=== PATIENT | female | born 1935 | race Caucasian/White ===

== ENCOUNTER 2019-09-14 06:52 | Day surgery (SDC) | payer MEDICARE, OTHER ==
[~2019-09-14 06:52] MED LIST: Lactated Ringers 1,000 ML IV SCH; Lidocaine 1%/Sod Bicarbonate in NS 8.4% 1 ML Syringe IDERM PRN; Sodium Chloride 0.9% 10 ML Syringe FLUSH PRN
--- NOTE | 2019-09-14 07:33 | PCM.PREANE ---
Preanesthetic Assessment - Procedure Proposed Procedure: egd/colonoscopy - Anesthesia/Transfusion/Family Hx Anesthesia History: Prior Anesthesia Without Reaction Family History of Anesthesia Reaction: No Transfusion History: Prior Transfusion Without Reaction - Review of Systems General: No Symptoms Pulmonary: Cough (40 some years) Cardiovascular: Dyspnea on Exertion Gastrointestinal: Abdominal Pain Neurological: Numbness (at times in left hand) Other: Reports: Easy Bleeding, Easy Bruising - Physical Assessment NPO Status Date: 09/13/19 NPO Status Time: 00:00 Height: 1.57 m Weight: 58.513 kg ASA Class: 3 Mental Status: Alert & Oriented x3 Airway Class: Mallampati = 1 Dentition: Reports: Partial (bottom) Thyro-Mental Finger Breadths: 2 Mouth Opening Finger Breadths: 2 ROM/Head Extension: Limited/Partial Lungs: Clear to Auscultation, Normal Respiratory Effort Cardiovascular: Regular Rate, Regular Rhythm - Allergies Allergies/Adverse Reactions: Allergies Allergy/AdvReac Type Severity Reaction Status Date / Time metronidazole [From Flagyl] AdvReac Nausea and Verified 09/13/19 13:15 Vomiting - Blood Blood Available: No Product(s) Available: None - Anesthesia Plan Pre-Op Medication Ordered: None - Acknowledgements Anesthesia Type Planned: MAC Pt an Appropriate Candidate for the Planned Anesthesia: Yes Alternatives and Risks of Anesthesia Discussed w Pt/Guardian: Yes Pt/Guardian Understands and Agrees with Anesthesia Plan: Yes PreAnesthesia Questionnaire Other HEENT History: has "flipper" partial Cardiovascular History: Reports: Afib, Angina, Blood Clots/VTE/DVT, Pacemaker, Stents, Other (See Below) Other Cardiovascular History: Hx of bradycardia, cardiogenic shock, irregular heart beat, carotid bruit, cerebrovascular disease, mitral and tricuspid regurgitation, pericardial effusion,sick sinus syndrome, aortic valve sclerosis , angian, blood clot, STEMI, cardioverson Respiratory History: Reports: Bronchitis, Recurrent Other Respiratory History: Hx of choking, cough Gastrointestinal History: Reports: GERD, Hiatal Hernia, Other (See Below) Other Gastrointestinal History: Barretts esophagus, LUQ pain, dysphagia, diverticulosis, constipation Genitourinary History: Reports: Other (See Below) Other Genitourinary History: kidney disease Other OB/BYN History: hysterectomy Other Musculoskeletal History: L knee pain Neurological History: Reports: Other (See Below) Other Neuro History: lumbar stenosis with neurogenic claudication, dizziness, vertgo, lamiectomy discectomy Psychiatric History: Reports: None Endocrine/Metabolic History: Reports: None Hematologic History: Reports: None Immunologic History: Reports: None Oncologic (Cancer) History: Reports: None Dermatologic History: Reports: None - Past Surgical History HEENT Surgical History: Reports: Cataract Surgery Cardiovascular Surgical History: Reports: Carotid Endarterectomy, Pacer Other Cardiovascular Surgeries/Procedures: afib corrected with cardioversion 8- 9 years ago Respiratory Surgical History: Reports: None GI Surgical History: Reports: Appendectomy Female Surgical History: Reports: Hysterectomy Male Surgical History: Reports: None Endocrine Surgical History: Reports: None Neurological Surgical History: Reports: Laminectomy Oncologic Surgical History: Reports: None Dermatological Surgical History: Reports: None - SUBSTANCE USE Smoking Status *Q: Never Smoker Tobacco Use Within Last Twelve Months: No Second Hand Smoke Exposure: No Days Per Week of Alcohol Use: 0 Number of Drinks Per Day: 0 Total Drinks Per Week: 0 Recreational Drug Use History: No - HOME MEDS Home Medications: Home Meds Amiodarone HCl 200 mg PO DAILY 05/01/15 [History] Aspirin [Adult Low Dose Aspirin EC] 81 mg PO DAILY #30 tablet. 05/02/15 [Rx] Omeprazole 40 mg PO DAILY 07/25/15 [History] Magnesium Oxide [Magnesium] 400 mg PO DAILY 07/30/16 [History] atorvaSTATin [Lipitor] 40 mg PO BEDTIME 07/30/16 [History] Acetaminophen [Tylenol] 650 mg PO Q4H PRN 09/13/19 [History] Fluticasone Propionate [Flonase] 1 dose NASBOTH DAILY 09/13/19 [History] Meclizine [Antivert] 25 mg PO DAILY 09/13/19 [History] Ranitidine HCl [Ranitidine] 300 mg PO DAILY 09/13/19 [History] Warfarin Sodium 1 mg PO SUTUTHSA 09/13/19 [History] Warfarin Sodium 1.5 mg PO MOWEFR 09/13/19 [History] - CURRENT (IN HOUSE) MEDS Current Meds: Current Medications Lactated Ringer's (Ringers, Lactated) 1,000 mls @ 125 mls/hr IV ASDIRECTED VALENCIA Stop: 09/14/19 23:00 Lidocaine/Sodium Bicarbonate (Buffered Lidocaine 1% In Ns 8.4%) 0.25 ml IDERM ONETIME PRN PRN Reason: Prior to IV Start Stop: 09/14/19 18:00 Sodium Chloride (Saline Flush) 10 ml FLUSH ASDIRECTED PRN PRN Reason: Keep Vein Open Stop: 09/14/19 18:00
[2019-09-14] MEDS ORDERED: fentaNYL 100 MCG/2 ML SDV ONE (07:43)
[2019-09-14] MEDS ORDERED: Propofol 200 MG/20 ML SDV ONE (07:43)
--- NOTE | 2019-09-14 08:46 | PCM.OPNOTE ---
- General Post-Op/Procedure Note Date of Surgery/Procedure: 09/14/19 Operative Procedure(s): EGD with bx/colonosocopy Pre Op Diagnosis: change in bowel habits hx of barretts esophagus and abnormal CT of esophagus Post-Op Diagnosis: Same Anesthesia Technique: MAC Primary Surgeon: Elmer Muller EBL in mLs: 0 Complications: None Condition: Good
--- NOTE | 2019-09-14 08:52 | PCM48HPAN ---
Post Anesthesia Note - EVALUATION WITHIN 48HRS OF ANESTHETIC Vital Signs in Normal Range: Yes Patient Participated in Evaluation: Yes Respiratory Function Stable: Yes Airway Patent: Yes Cardiovascular Function Stable: Yes Hydration Status Stable: Yes Pain Control Satisfactory: Yes Nausea and Vomiting Control Satisfactory: Yes Mental Status Recovered: Yes Vital Signs: Last Vital Signs Temp 36.4 C 09/14/19 07:05 Pulse 65 09/14/19 07:05 Resp 16 09/14/19 07:05 BP 157/66 H 09/14/19 07:05 Pulse Ox 99 09/14/19 07:05 - COMMENTS/OBSERVATIONS Free Text/Narrative:: no anesthesia complications noted
[2019-09-14 09:11] VITALS: BP 144/67; PULSE 59
--- NOTE | 2019-09-15 10:42 | OR ---
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 OPERATION PERFORMED: Esophagogastroduodenoscopy with biopsy of the GE junction. FINDINGS: Second portion of the duodenum, duodenal bulb, and pyloric channel were unremarkable. Antrum, body, cardia of stomach, and fundus were negative. There was the presence of a hiatal hernia. GE junction was located at 40 to 38 cm. 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 Four-quadrant biopsies were done at the GE junction. Rest of the esophagus was unremarkable. DESCRIPTION OF PROCEDURE: The patient was taken to the endoscopy room, placed in a supine position, connected to monitoring equipment, given IV sedation, and placed in left lateral position. Bite block was inserted. Video Olympus gastroscope placed in the posterior oropharynx under direct vision, threaded past the cricopharyngeus, down the esophagus and into the stomach. The stomach was insufflated and the scope passed through the pylorus and the second portion of the duodenum, which was slowly withdrawn showing normal 2nd portion of the duodenum, duodenal bulb, and pyloric channel. Antrum, body, and cardia of the stomach showed some flattened mucosa. J-maneuver showed a hiatal hernia. No acute disease was seen in the stomach that would suggest chronic gastritis. Scope withdrawn from the GE junction as described above. The Z-line was just mildly irregular with some telangiectasia and 4-quadrant biopsies were taken. Rest of the esophagus was unremarkable. The patient tolerated the procedure and IV sedation continued for colonoscopy. ANESTHESIA: ESTIMATED BLOOD LOSS: MMODAL /[id number]
--- NOTE | 2019-09-15 10:43 | OR ---
DATE OF OPERATION: 09/14/2019 SURGEON: Elmer Muller MD PREOPERATIVE DIAGNOSIS: Change in bowel habits. POSTOPERATIVE DIAGNOSIS: Change in bowel habits. OPERATION PERFORMED: Colonoscopy to 20 cm. FINDINGS: Occasional diverticulum in that area. No particular pathology seen. Unable to advance the scope beyond 20 cm because of technical reasons. ANESTHESIA: Procedure done under IV sedation. DESCRIPTION OF PROCEDURE: The patient taken to the endoscopy room having been connected to monitoring equipment, IV sedation, oximeter, and vehicle monitor technician for upper GI endoscopy and given sedation. Sedation was continued for colonoscopy. She was placed in the left lateral position. Perianal area showed some mild hemorrhoids. Rectal exam showed less sphincter tone. Video Olympus colonoscope was then introduced into the rectum and threaded up to 20 cm where an acute bend did not allow the scope to transverse into the descending colon. Scope prep was excellent, and the scope slowly withdrawn showing the sigmoid colon and rectum in no particular pathology. The patient tolerated the procedure, sent to recovery room in a stable condition. ESTIMATED BLOOD LOSS: MMODAL /[id number]
== END 2019-09-14 09:35 | disposition home or self-care (01) ==
LOC: JD.SDS 06:52
PROVIDERS: ATTEND Surgery
DX: R19.4 Change in bowel habit (principal); K22.70 Barrett's esophagus without dysplasia; K44.9 Diaphragmatic hernia without obstruction or gangrene; K21.0 Gastro-esophageal reflux disease with esophagitis; K57.30 Diverticulosis of large intestine without perforation or abscess without bleeding; Z88.1 Allergy status to other antibiotic agents; Z90.49 Acquired absence of other specified parts of digestive tract; Z79.899 Other long term (current) drug therapy
CPT/HCPCS: 00813; 36415; 85610; J2704; J3010; J7120

== ENCOUNTER 2020-04-24 14:55 | Emergency (ER) | payer MEDICARE, OTHER ==
[2020-04-24 15:24] VITALS: BP 173/86; PULSE 66
--- NOTE | 2020-04-24 16:07 | EDM.PDOC ---
ED HPI GENERAL MEDICAL PROBLEM - General Chief Complaint: Head Injury Stated Complaint: FALL Time Seen by Provider: 04/24/20 15:30 Source of Information: Reports: Patient, Family (daughter) History Limitations: Reports: No Limitations - History of Present Illness INITIAL COMMENTS - FREE TEXT/NARRATIVE: 84-year-old female presents to the ED with her daughter. History suggest that she was in her kitchen with her granddaughter and suddenly fell backwards striking her head on the floor. By history it sounds like this happens frequently by looking too far forward or upwards I likely vertebrobasilar insufficiency. She by history she has chronic sinusitis with postnasal drip for 50 years. This causes her throat to be sore in the mornings as well as being nauseated in the a.m. 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 She really does not seem to have any true vertigo symptoms however. She is chronically anticoagulated with Coumadin because of atrial fibrillation. He was tested in the clinic yesterday and her INR was supratherapeutic at 3.2. Apparently her Coumadin was reduced by a quarter of a tablet daily. At present she has a mild headache but no nausea or vomiting. Denies any visual acuity changes. She denies pain in her upper mid back ribs or hips or knees or elbows or wrists. Onset: Today Onset Date: 04/24/20 Onset Time: 13:30 Duration: Minutes: Location: Reports: Head, Neck Quality: Reports: Ache, Other (Headache) Severity: Moderate (lump on the back of her head.) Improves with: Reports: None Worsens with: Reports: None Context: Reports: Trauma (Fell in her kitchen backwards directly onto the floor without any warning. By history has some vertebral basilar insufficiency). Denies: Activity, Exercise, Lifting, Sick Contact Associated Symptoms: Reports: Other (Chronic postnasal drip). Denies: Confusion , Chest Pain, Cough, cough w sputum, Diaphoresis, Fever/Chills, Headaches, Loss of Appetite, Malaise, Nausea/Vomiting Treatments [employer] S[employer]: Reports: Other (see below) (None.) - Related Data Allergies Allergy/AdvReac Type Severity Reaction Status Date / Time metronidazole [From Flagyl] AdvReac Nausea and Verified 04/24/20 15:24 Vomiting Home Meds: Home Meds Amiodarone HCl 200 mg PO DAILY 05/01/15 [History] Aspirin [Adult Low Dose Aspirin EC] 81 mg PO DAILY #30 tablet.dr 05/02/15 [Rx] Omeprazole 40 mg PO DAILY 07/25/15 [History] Magnesium Oxide [Magnesium] 400 mg PO DAILY 07/30/16 [History] atorvaSTATin [Lipitor] 40 mg PO BEDTIME 07/30/16 [History] Acetaminophen [Tylenol] 650 mg PO Q4H PRN 09/13/19 [History] Warfarin Sodium 1.5 mg PO DAILY 09/13/19 [History] Montelukast [Singulair] 10 mg PO DAILY #30 tab 04/24/20 [Rx] amLODIPine [Norvasc] 5 mg PO DAILY #30 tab 04/24/20 [Rx] Past Medical History HEENT History: Reports: Allergic Rhinitis (Chronic postnasal drip for 50 years.) Other HEENT History: has "flipper" partial Cardiovascular History: Reports: Afib (Controlled with amiodarone.), Angina, Blood Clots/VTE/DVT, Pacemaker, Stents, Other (See Below) Other Cardiovascular History: Hx of bradycardia, cardiogenic shock, irregular heart beat, carotid bruit, cerebrovascular disease, mitral and tricuspid regurgitation, pericardial effusion,sick sinus syndrome, aortic valve sclerosis , angian, blood clot, STEMI, cardioverson Respiratory History: Reports: Bronchitis, Recurrent Other Respiratory History: Hx of choking, cough Gastrointestinal History: Reports: GERD, Hiatal Hernia, Other (See Below) Other Gastrointestinal History: Barretts esophagus, LUQ pain, dysphagia, diverticulosis, constipation Genitourinary History: Reports: Other (See Below) Other Genitourinary History: kidney disease CELLULAR BIOLOGIST History: Reports: Other CELLULAR BIOLOGIST History: hysterectomy Other Musculoskeletal History: L knee pain Neurological History: Reports: Other (See Below) Other Neuro History: lumbar stenosis with neurogenic claudication, dizziness, vertgo, lamiectomy discectomy Psychiatric History: Reports: None Endocrine/Metabolic History: Reports: None Hematologic History: Reports: None Immunologic History: Reports: None Oncologic (Cancer) History: Reports: None Dermatologic History: Reports: None - Infectious Disease History Infectious Disease History: Reports: None - Past Surgical History HEENT Surgical History: Reports: Cataract Surgery Cardiovascular Surgical History: Reports: Carotid Endarterectomy, Pacer Other Cardiovascular Surgeries/Procedures: afib corrected with cardioversion 8- 9 years ago Respiratory Surgical History: Reports: None GI Surgical History: Reports: Appendectomy Female Surgical History: Reports: Hysterectomy Endocrine Surgical History: Reports: None Neurological Surgical History: Reports: Laminectomy Oncologic Surgical History: Reports: None Dermatological Surgical History: Reports: None Social & Family History - Tobacco Use Smoking Status *Q: Never Smoker - Caffeine Use Caffeine Use: Reports: Coffee - Recreational Drug Use Recreational Drug Use: No - Living Situation & Occupation Living situation: Reports: Occupation: Retired ED ROS GENERAL - Review of Systems Review Of Systems: See Below Constitutional: Reports: Fatigue. Denies: Fever, Chills HEENT: Reports: Glasses Respiratory: Reports: Shortness of Breath. Denies: Wheezing, Pleuritic Chest Pain (Patient on dyspnea on exertion.), Cough, Sputum Cardiovascular: Reports: Blood Pressure Problem, Claudication (Has known systolic hypertension), Dyspnea on Exertion, Lightheadedness, Palpitations (On occasions chronic atrial fibrillation). Denies: Chest Pain, Edema, Orthopnea Endocrine: Reports: Fatigue GI/Abdominal: Reports: Constipation. Denies: Hematemesis, Hematochezia : Reports: Frequency, Incontinence (Urge and stress components.) Musculoskeletal: Reports: Neck Pain (Neck pain worse since she fell today.), Shoulder Pain (Both shoulders), Joint Pain (Knees hips low back at times) Skin: Reports: Bruising (Bruises easily due to being on Coumadin.) Neurological: Reports: Dizziness (Gets lightheaded and falls forward or backwards quite often without any vertigo symptoms.) Psychiatric: Reports: No Symptoms Hematologic/Lymphatic: Reports: No Symptoms Immunologic: Reports: No Symptoms ED EXAM, HEAD INJURY - Physical Exam Exam: See Below Exam Limited By: No Limitations General Appearance: Alert, WD/WN, No Apparent Distress, Other (Temperature is 36.7 with heart rate of 66 and sinus respiratory 16 with O2 sats of 97% on room air BP 173/86 a systolic hypertension) Head: Scalp Hematoma (Scalp hematoma midline of the occipital scalp. Tenderness in the same area.) Nexus Criteria: Posterior, Midline Cervical Tenderness (From C4-C7 bilaterally. Appears to be quite mild.) Eyes: Bilateral Eye: Normal Inspection, Periorbital Changes Nose: Nasal Swelling (Has marked swelling of both superior and middle turbinates. This is most pronounced on the right side where they are kissing in the midline. She has bilateral nasal polyps as well.) Throat/Mouth: Normal Inspection, Normal Lips, Normal Oropharynx, Other (No injury to her tongue). No: Normal Teeth Neck: Paraspinous Muscle Tender, Stiff Neck, Tender Lateral (Mild bilaterally from C4-C7.). No: Spinous Processes Tender (From C4-C7 bilaterally.) Respiratory: No Respiratory Distress, Lungs Clear, Normal Breath Sounds, No Accessory Muscle Use Cardiovascular: Normal Peripheral Pulses, No Gallop, No Murmur, No Rub, Systolic Murmur (Grade 1 out of 6 pansystolic ejection murmur best heard at the left lower sternal border.), Irregularly Irregular (She appears to be in atrial fibrillation with a controlled rate in the 60s.) GI/Abdominal Exam: Normal Bowel Sounds, Soft, Non-Tender, No Organomegaly, No Mass, Pelvis Stable, Other (She indicates that recent investigations reveal a mass in her left hemicolon.) Back Exam: Other (No abrasions or contusions to her spinous processes which are all very prominent). No: Paraspinal Tenderness, Vertebral Tenderness Extremities: Normal Inspection, Normal Range of Motion, Non-Tender, No Pedal Edema, Normal Capillary Refill, Other (The elbows wrists or hands knees or hips. ) Neurologic: No Motor/Sensory Deficits, Alert, Normal Mood/Affect, Oriented x 3 Skin: Normal Color, Warm/Dry - [place] Coma Score Best Eye Response (Ginger): (4) Open Spontaneously Best Verbal Response (Ginger): (5) Oriented Best Motor Response (Ginger): (6) Obeys Commands Ginger Total: 15 Course - Vital Signs Last Recorded V/S: Last Vital Signs Temp 36.7 C 04/24/20 15:21 Pulse 66 04/24/20 15:21 Resp 16 04/24/20 15:21 BP 173/86 H 04/24/20 15:21 Pulse Ox 97 04/24/20 15:21 - Radiology Interpretation Free Text/Narrative:: 84-year-old female presents to the ED for evaluation after a fall at home. By history she fell directly backwards without any warning onto the back of her head striking the kitchen floor. There was no loss of consciousness. She is complaining mildly of a cervical neck pain and a hematoma has formed on the mid occipital scalp. She is on Coumadin with INR done yesterday which is supratherapeutic at 3.2. Her Coumadin dose was reduced by Coumadin nurse today by phone. Been having her INR done weekly because of difficulty stabilizing her dose. No other injuries are identified The history suggest she has a chronic postnasal drip and she does have severe nasal turbinate enlargement bilaterally with nasal polyps bilaterally causing postnasal drip. Thus the possibility of using Nasacort AQ once daily at bedtime which she will find difficulty is because she cannot assume the Pamela position. We will also give her a trial of montelukast once daily for the next month to see if it makes any difference. Plan will be to have CT of head and cervical spine carried out. - Re-Assessments/Exams Free Text/Narrative Re-Assessment/Exam: 04/24/20 16:51 CT of the brain and skull reveals no skull fractures. There is no intracranial bleeding or mass-effect. There is diffuse small vessel ischemic changes in both basal ganglia is. There is advanced degenerative changes with dilated lateral ventricles and some encephalomalacia at the anterior horns. CT of the cervical spine reveals advanced degenerative arthritic changes particularly in the facet joints on the right side of the neck. No fractures or malalignment is appreciated. Therefore she will be discharged to home. It is impossible to tell if she has any concussion which her activity is of very low level at any rate. Her pressures remained elevated systolically. It is high as 193 and is low was 173. It likes to stay around 182. This diastolic numbers around 70s. I am therefore going to place her on amlodipine 5 mg once daily in an effort to lower her systolic hypertension. We spoke at length about her chronic nasal congestion and postnasal drip. We will place her on Nasacort nasal spray and she is to try and assume a position with head tilted back over a pillow where she can get the medication to stay in the upper chambers of her nares to do any good. We will also try her on a trial of montelukast 10 mg once daily for a month to see if this alleviates chronic sinus congestion. Is to follow-up with Dr. Prieto in 3 to 4 weeks time for blood pressure review only she does have an appointment to see ear nose and throat surgeon in [place] sometime in the next month Departure - Departure Time of Disposition: 16:52 Disposition: Home, Self-Care 01 Condition: Fair Clinical Impression: Chronic allergic rhinitis, Vertebrobasilar insufficiency Fall as cause of accidental injury at home as place of occurrence Qualifiers: Encounter type: initial encounter Qualified Code(s): W19.XXXA - Unspecified fall, initial encounter Closed head injury without concussion Qualifiers: Encounter type: initial encounter Qualified Code(s): S09.90XA - Unspecified injury of head, initial encounter Sprain of cervical neck Qualifiers: Encounter type: initial encounter Qualified Code(s): S13.9XXA - Sprain of joints and ligaments of unspecified parts of neck, initial encounter - Discharge Information *PRESCRIPTION DRUG MONITORING PROGRAM REVIEWED*: Not Applicable *COPY OF PRESCRIPTION DRUG MONITORING REPORT IN PATIENT NEETU: Not Applicable Prescriptions: amLODIPine [Norvasc] 5 mg PO DAILY #30 tab Montelukast [Singulair] 10 mg PO DAILY #30 tab Instructions: Head Injury, Adult, [id number], Cervical Sprain, [id number] Referrals: Henri Prieto MD [Primary Care Provider] - Forms: ED Department Discharge Additional Instructions: Evaluation in the emergency room today in regards to a fall experienced in your kitchen at home this afternoon. He simply fell straight backwards onto the floor striking the back of your head on the floor with no reported loss of consciousness. There is him no amnesia for the event and no clinical evidence of a concussion. Due to being on Coumadin CT of the head was performed and it reveals no intracranial bleeding or skull fracture there is no mass-effect. There are age-appropriate degenerative changes. CT of the cervical spine reveals advanced degenerative arthritic change throughout all levels of the spine particular on the right side. No fractures were identified. Expect your neck to become more stiff and sore over the next 24 to 48 hours. May take Tylenol sparingly for headache if needed. I suspect you have vertebrobasilar insufficiency which means the arteries that supply the back of your brain which is your balance mechanism are easily kinked when you look upwards or downwards in extreme range of motion. This will cause you to fall forwards or backwards quite easily. Think can be done about this as it is age-related. Secondly I do believe you have chronic severe allergic rhinitis due to allergies. I would suggest a trial of Nasacort nasal spray 2 squirts each side of the naris twice daily for the next 5 days and then once daily at bedtime only to try and reduce the swelling of the turbinates and your nose which in turn you should reduce the amount of fluid they produce in response to allergy. This would open up your nasal passages. Do has some ethmoid sinus congestion on the CT but no significant sinus infection in the frontals or the maxillary sinuses. You could also try a trial of montelukast or Singulair 1 tablet once daily for period of a month to see if it does relieve any of your nasal symptoms. Write a prescription in this regard. In regards to your blood pressure you have something called systolic hypertension which means only the top number is elevated persistently. It was as high as 193 but it likes to hang out in the 180s. They are therefore think that it does deserve treatment and I would suggest amlodipine 5 mg once daily to lower your top number of your blood pressure. Gain all of these medications been written for 1 month you need to follow-up with your primary care provider which I believe is Dr. Prieto in the next [address] nasal spray is [id number]. 2 squirts to each side of your nose a minute apart twice daily for the first week and then once daily at bedtime . In a similar position where the medicine will stay in the upper part of the naris and soak into the tissues were will do some good. Usually lying down with the head tilted backwards will do the trick Sepsis Event Note (ED) - Evaluation Sepsis Screening Result: No Definite Risk - Focused Exam Vital Signs: Vital Signs Temp Pulse Resp BP Pulse Ox 04/24/20 15:21 36.7 C 66 16 173/86 H 97
--- NOTE | 2020-04-24 16:53 | CT ---
Head CT Technique: Multiple axial sections through the brain were obtained. Intravenous contrast was not utilized. Comparison: No prior intracranial imaging is available. Findings: Ventricles along with basal cisterns and sulci over the next these are mildly prominent. Diminished density is noted within the periventricular white matter compatible with small vessel ischemic demyelination change. No other abnormal parenchymal densities are seen. No evidence of intracranial hemorrhage. No midline shift or mass-effect is seen. Bone window settings were reviewed which shows no acute calvarial finding. Visualized mastoid sinuses show nothing acute. Mild areas mucosal thickening is seen within the ethmoid sinuses. No air-fluid levels are seen within the paranasal sinuses. Impression: 1. Mild senescent change. 2. Sinus findings which are believed to be nonacute. 3. No acute intracranial abnormality is appreciated. Diagnostic code #2 This report was dictated in MDT
--- NOTE | 2020-04-24 16:59 | CT ---
CT cervical spine Technique: Multiple axial images were obtained from above C1 inferiorly to the bottom of T3. Reconstructed coronal and sagittal images were obtained. Comparison: No prior cervical spine imaging. Findings: Diffuse posterior disc space narrowing is seen. Fairly severe diffuse disc space narrowing is noted at C6-7. Posterior osteophytes are C6-7 as well as anterior osteophytes. Mild spondylolisthesis is noted at C4-5 due to degenerative apophyseal change. Mild spondylolisthesis is noted at 4 T1-2 due to degenerative apophyseal change. Minimal spondylolisthesis is also noted at C5-6 due to degenerative apophyseal change. Degenerative apophyseal change is also noted at other cervical and upper thoracic levels. Mild right-sided neural foraminal stenosis is noted at C3-4. Other neural foramina are fairly well patent. No fracture is appreciated. Diffuse degenerative spurring is noted within the uncovertebral joints. Impression: 1. Diffuse degenerative change as described above. 2. Nothing acute is appreciated on CT study of the cervical spine. Diagnostic code #2 This report was dictated in MDT
== END 2020-04-24 17:35 | disposition home or self-care (01) ==
LOC: JD.ED 14:55
DX: S09.90XA Unspecified injury of head, initial encounter (principal); S13.4XXA Sprain of ligaments of cervical spine, initial encounter; G45.0 Vertebro-basilar artery syndrome; J30.9 Allergic rhinitis, unspecified; K21.9 Gastro-esophageal reflux disease without esophagitis; I48.91 Unspecified atrial fibrillation; Z88.8 Allergy status to other drugs, medicaments and biological substances; Z79.82 Long term (current) use of aspirin; Z79.899 Other long term (current) drug therapy; Z90.710 Acquired absence of both cervix and uterus; Z90.49 Acquired absence of other specified parts of digestive tract; W19.XXXA Unspecified fall, initial encounter; Y92.009 Unspecified place in unspecified non-institutional (private) residence as the place of occurrence of the external cause
CPT/HCPCS: 70450; 70450-26; 72125; 72125-26; 99283-25; 99284

== ENCOUNTER 2020-05-31 11:06 | Emergency (ER) | payer MEDICARE, OTHER ==
[2020-05-31 11:22] VITALS: BP 155/75; PULSE 63
--- NOTE | 2020-05-31 11:32 | EDM.PDOC ---
ED HPI GENERAL MEDICAL PROBLEM - General Chief Complaint: General Stated Complaint: DIZZY AND WEAK Time Seen by Provider: 05/31/20 11:31 Source of Information: Reports: Patient History Limitations: Reports: No Limitations - History of Present Illness INITIAL COMMENTS - FREE TEXT/NARRATIVE: 84-year-old female attends the ED with I believe a [id number]. She reports that she awoke with very bad vertigo episode yesterday morning and was not too bad overnight but again worse this morning upon getting up. She has not fallen. She is hanging onto the furniture to walk. Vertigo goes away when she holds still. She has had many of these episodes in the past. She appreciates she is also becoming more deaf and losing her hearing as time goes on. She states she makes the symptoms go away by closing her eyes and holding still. No associated nausea or vomiting. Patient has a history of chronic atrial fibrillation but rate appears to be controlled with a pacemaker at 60/min. She states she has had 2 coronary stents placed in the pacemaker in the same year. She also had a left carotid endarterectomy in the past. She does not appreciate any weakness. Does have a cough that is not bringing up any sputum. Feels that she has extra saliva which I believe is likely due to postnasal drip. Ports just getting off of some pills for her sinus disease. she does not wear hearing aids. Onset: Sudden Onset Date: 05/30/20 (Woke with vertigo symptoms yesterday morning.) Duration: Hour(s):, Waxing/Waning Location: Reports: Other (Acute onset of vertigo symptoms controlled by holding still and closing her eyes.) Quality: Reports: Other (Recurrent) Severity: Moderate (benign positional vertigo.) Improves with: Reports: Rest (Closing her eyes and holding still.) Worsens with: Reports: Movement (Opened up her head neck or getting in and out of bed. Also looking upwards) Context: Reports: Other (Continuous occurrence yesterday morning.). Denies: Activity ( makes the vertigo worse.), Exercise, Lifting, Sick Contact, Trauma Associated Symptoms: Reports: Cough, Malaise, Shortness of Breath, Weakness. 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 (see below) (Just finished medications for sinuses.) - Related Data Allergies Allergy/AdvReac Type Severity Reaction Status Date / Time metronidazole [From Flagyl] AdvReac Nausea and Verified 05/31/20 11:21 Vomiting Home Meds: Home Meds Amiodarone HCl 200 mg PO DAILY 05/01/15 [History] Aspirin [Adult Low Dose Aspirin EC] 81 mg PO DAILY #30 tablet.dr 05/02/15 [Rx] Omeprazole 40 mg PO DAILY 07/25/15 [History] Magnesium Oxide [Magnesium] 400 mg PO DAILY 07/30/16 [History] atorvaSTATin [Lipitor] 40 mg PO BEDTIME 07/30/16 [History] Acetaminophen [Tylenol] 650 mg PO Q4H PRN 09/13/19 [History] Warfarin Sodium 1.5 mg PO DAILY 09/13/19 [History] Montelukast [Singulair] 10 mg PO DAILY #30 tab 04/24/20 [Rx] Meclizine [Antivert] 12.5 mg PO TID #15 tab 05/31/20 [Rx] Past Medical History HEENT History: Reports: Allergic Rhinitis Other HEENT History: has "flipper" partial Cardiovascular History: Reports: Afib, Angina, Blood Clots/VTE/DVT, Pacemaker, Stents, Other (See Below) Other Cardiovascular History: Hx of bradycardia, cardiogenic shock, irregular heart beat, carotid bruit, cerebrovascular disease, mitral and tricuspid regurgitation, pericardial effusion,sick sinus syndrome, aortic valve sclerosis, angian, blood clot, STEMI, cardioverson Respiratory History: Reports: Bronchitis, Recurrent Other Respiratory History: Hx of choking, cough Gastrointestinal History: Reports: GERD, Hiatal Hernia, Other (See Below) Other Gastrointestinal History: Barretts esophagus, LUQ pain, dysphagia, diverticulosis, constipation Genitourinary History: Reports: Other (See Below) Other Genitourinary History: kidney disease LEMON PICKER History: Reports: Other LEMON PICKER History: hysterectomy Other Musculoskeletal History: L knee pain Neurological History: Reports: Other (See Below) Other Neuro History: lumbar stenosis with neurogenic claudication, dizziness, vertgo, lamiectomy discectomy Psychiatric History: Reports: None Endocrine/Metabolic History: Reports: None Hematologic History: Reports: None Immunologic History: Reports: None Oncologic (Cancer) History: Reports: None Dermatologic History: Reports: None - Infectious Disease History Infectious Disease History: Reports: None - Past Surgical History HEENT Surgical History: Reports: Cataract Surgery Cardiovascular Surgical History: Reports: Carotid Endarterectomy, Pacer (Left upper anterior chest left side) Other Cardiovascular Surgeries/Procedures: afib corrected with cardioversion 8-9 years ago Respiratory Surgical History: Reports: None GI Surgical History: Reports: Appendectomy Female Surgical History: Reports: Hysterectomy (With 1 ovary removed and she can remember which one probably the right.) Endocrine Surgical History: Reports: None Neurological Surgical History: Reports: Laminectomy Oncologic Surgical History: Reports: None Dermatological Surgical History: Reports: None Social & Family History - Tobacco Use Smoking Status *Q: Never Smoker - Caffeine Use Caffeine Use: Reports: Coffee, Tea - Recreational Drug Use Recreational Drug Use: No - Living Situation & Occupation Living situation: Reports: Occupation: Retired ED ROS GENERAL - Review of Systems Review Of Systems: See Below Constitutional: Reports: Weakness, Fatigue, Decreased Appetite. Denies: Fever, Chills, Malaise, Weight Loss HEENT: Reports: Glasses, Hearing Loss (Lateral hearing loss which she states is getting worse. No increased humming ringing or tinnitus appreciated.), Rhinitis, Other (Feels like she has extra saliva in her throat particularly at night.) Respiratory: Reports: Shortness of Breath, Cough. Denies: Wheezing, Pleuritic Chest Pain, Sputum, Hemoptysis (Cough for the last couple of days without any sputum production.) Cardiovascular: Reports: Blood Pressure Problem, Dyspnea on Exertion (Has some edema of her left lower extremity.), Edema, Palpitations (Occasionally aware of palpitations due to atrial fibrillation. Of note she is primarily paced rhythm at 60/min on the monitor.). Denies: Chest Pain, Claudication, Orthopnea Endocrine: Reports: Fatigue GI/Abdominal: Reports: Constipation (She does not take medicine for this but stools are hard and somewhat painful to pass at times.), Decreased Appetite. Denies: Difficulty Swallowing, Distension, Hematemesis, Hematochezia, Melena, Mucous in Stool : Reports: Frequency, Incontinence (Third and stress components.) Musculoskeletal: Reports: Neck Pain, Shoulder Pain, Back Pain, Joint Pain (He is in hips at times. No artificial joints.) Skin: Reports: Bruising (This is easily as she is on Coumadin.) Neurological: Reports: Dizziness, Difficulty Walking, Gait Disturbance (Ataxic gait due to vertigo.). Denies: Confusion, Headache (Dizziness which is interpreted as vertigo.), Numbness, Pre-Existing Deficit (Vertigo), Syncope, Tingling, Tremors, Trouble Speaking, Change in Speech Psychiatric: Reports: Anxiety Hematologic/Lymphatic: Reports: No Symptoms Immunologic: Reports: No Symptoms ED EXAM, GENERAL - Physical Exam Exam: See Below Exam Limited By: No Limitations General Appearance: Alert, WD/WN, Anxious, Moderate Distress, Other (Temperature is 36.1. Heart rate is 63 and sinus respiratory is 18 BP 1 5575 pulse ox is 98% on room air.) Eye Exam: Bilateral Eye: Nystagmus (No sustained nystagmus on either lateral gaze.), PERRL Ears: Normal TMs Nose: Nasal Swelling (Patient does have some mild swelling of both the superior medial turbinates bilaterally slightly worse on the right side as compared to th e left. No obvious drainage apparent in either nostril. No recent), Other Throat/Mouth: Normal Inspection ( evidence of nosebleeds.), Normal Lips, Normal Teeth, Normal Oropharynx, Other (Does have a lower plate.) Head: Atraumatic, Normocephalic Neck: Normal Inspection, Supple, Non-Tender, Full Range of Motion. No: Lympha denopathy (L), Lymphadenopathy (R) Respiratory/Chest: No Respiratory Distress, Lungs Clear, No Accessory Muscle Use, Decreased Breath Sounds (Sounds are mildly diminished to the lung bases by about 20%.). No: Rales, Rhonchi Cardiovascular: Regular Rate, Rhythm, No Gallop, No Murmur, No Rub, Other (Patient has a palpable beat in the left lateral chest. Pacemaker present left upper anterior chest in good position.). No: Normal Peripheral Pulses, No Edema Peripheral Pulses: 1+: Posterior Tibial (L) (Also difficult to feel in both feet due to edema in the left side and some evidence of peripheral vascular disease.), Posterior Tibial (R), Dorsalis Pedis (L), Dorsalis Pedis (R), 2+: Carotid (L), Carotid (R) GI/Abdominal: Normal Bowel Sounds, Soft, Non-Tender, No Organomegaly, No Abnormal Bruit, No Mass, Pelvis Stable, Other (Evidence of previous surgery i.e. appendectomy and hysterectomy.) Back Exam: Other (Mild kyphosis thoracic spine.) Extremities: Pedal Edema (2+ pitting edema left lower extremity Yan edema on the right side.) Neurological: Alert, Oriented, CN II-XII Intact, Normal Cognition Psychiatric: Other. No: Normal Mood (Mildly cantankerous.) Skin Exam: Warm, Dry, Intact, Normal Color, No Rash Course - Vital Signs Last Recorded V/S: Last Vital Signs Temp 36.1 C 05/31/20 11:18 Pulse 63 05/31/20 11:18 Resp 18 05/31/20 11:18 BP 155/75 H 05/31/20 11:18 Pulse Ox 98 05/31/20 11:18 - Orders/Labs/Meds Orders: Active Orders 24 hr Category Date Time Status Dextrose 5%-0.9% NaCl [Dextrose 5%-Normal Saline] 1,000 Med 05/31/20 11:45 Active ml IV ASDIRECTED Medication Orders Dextrose/Sodium Chloride (Dextrose 5%-Normal Saline) 1,000 mls @ 125 mls/hr IV ASDIRECTED VALENCIA Last Admin: 05/31/20 12:07 Dose: 125 mls/hr Documented by: ALE Labs: Laboratory Tests 05/31/20 05/31/20 05/31/20 Range/Units 12:16 12:16 12:16 WBC 7.41 (3.98-10.04) K/mm3 RBC 4.56 (3.98-5.22) M/mm3 Hgb 13.4 (11.2-15.7) gm/dl Hct 41.2 (34.1-44.9) % MCV 90.4 D (79.4-94.8) fl MCH 29.4 (25.6-32.2) pg MCHC 32.5 (32.2-35.5) g/dl RDW Std Deviation 44.9 (36.4-46.3) fL Plt Count 192 (182-369) K/mm3 MPV 10.3 (9.4-12.3) fl Neut % (Auto) 75.7 H (34.0-71.1) % Lymph % (Auto) 15.0 L (19.3-51.7) % [place] % (Auto) 8.2 (4.7-12.5) % Eos % (Auto) 0.7 (0.7-5.8) Baso % (Auto) 0.4 (0.1-1.2) % Neut # (Auto) 5.61 (1.56-6.13) K/mm3 Lymph # (Auto) 1.11 L (1.18-3.74) K/mm3 [place] # (Auto) 0.61 H (0.24-0.36) K/mm3 Eos # (Auto) 0.05 (0.04-0.36) K/mm3 Baso # (Auto) 0.03 (0.01-0.08) K/mm3 PT 26.5 H D (9.7-12.0) SECONDS INR 2.56 Sodium 137 (136-145) mEq/L Potassium 5.2 H (3.5-5.1) mEq/L Chloride 100 (98-107) mEq/L Carbon Dioxide 28 (21-32) mEq/L Anion Gap 14.2 (5-15) BUN 21 H (7-18) mg/dL Creatinine 1.4 H (0.55-1.02) mg/dL Est Cr Clr Drug Dosing 25.37 mL/min Estimated GFR (MDRD) 36 (>60) mL/min BUN/Creatinine Ratio 15.0 (14-18) Glucose 90 (83-115) mg/dL Calcium 9.1 (8.5-10.1) mg/dL Magnesium 2.2 (1.8-2.4) mg/dl Total Bilirubin 1.2 H (0.2-1.0) mg/dL AST 30 (15-37) U/L ALT 36 (14-59) U/L Alkaline Phosphatase 76 (46-116) U/L Troponin I < 0.017 (0.00-0.056) ng/mL C-Reactive Protein <0.2 (<1.0) mg/dL NT-Pro-B Natriuret Pep (0-450) pg/mL Total Protein 6.9 (6.4-8.2) g/dl Albumin 4.0 (3.4-5.0) g/dl Globulin 2.9 gm/dL Albumin/Globulin Ratio 1.4 (1-2) TSH 3rd Generation 1.199 (0.358-3.74) uIU/mL Urine Color (Yellow) Urine Appearance (Clear) Urine pH (5.0-8.0) Ur Specific [place] (1.005-1.030) Urine Protein (Negative) Urine Glucose (UA) (Negative) Urine Ketones (Negative) Urine Occult Blood (Negative) Urine Nitrite (Negative) Urine Bilirubin (Negative) Urine Urobilinogen (0.2-1.0) Ur Leukocyte Esterase (Negative) Urine RBC (0-5) /hpf Urine WBC (0-5) /hpf Ur Squamous Epith Cells (0-5) /hpf Urine Bacteria (FEW) /hpf Urine Mucus (FEW) /hpf 05/31/20 05/31/20 Range/Units 12:53 13:49 WBC (3.98-10.04) K/mm3 RBC (3.98-5.22) M/mm3 Hgb (11.2-15.7) gm/dl Hct (34.1-44.9) % MCV (79.4-94.8) fl MCH (25.6-32.2) pg MCHC (32.2-35.5) g/dl RDW Std Deviation (36.4-46.3) fL Plt Count (182-369) K/mm3 MPV (9.4-12.3) fl Neut % (Auto) (34.0-71.1) % Lymph % (Auto) (19.3-51.7) % [place] % (Auto) (4.7-12.5) % Eos % (Auto) (0.7-5.8) Baso % (Auto) (0.1-1.2) % Neut # (Auto) (1.56-6.13) K/mm3 Lymph # (Auto) (1.18-3.74) K/mm3 [place] # (Auto) (0.24-0.36) K/mm3 Eos # (Auto) (0.04-0.36) K/mm3 Baso # (Auto) (0.01-0.08) K/mm3 PT (9.7-12.0) SECONDS INR Sodium (136-145) mEq/L Potassium (3.5-5.1) mEq/L Chloride (98-107) mEq/L Carbon Dioxide (21-32) mEq/L Anion Gap (5-15) BUN (7-18) mg/dL Creatinine (0.55-1.02) mg/dL Est Cr Clr Drug Dosing mL/min Estimated GFR (MDRD) (>60) mL/min BUN/Creatinine Ratio (14-18) Glucose (83-115) mg/dL Calcium (8.5-10.1) mg/dL Magnesium (1.8-2.4) mg/dl Total Bilirubin (0.2-1.0) mg/dL AST (15-37) U/L ALT (14-59) U/L Alkaline Phosphatase (46-116) U/L Troponin I (0.00-0.056) ng/mL C-Reactive Protein (<1.0) mg/dL NT-Pro-B Natriuret Pep 262 (0-450) pg/mL Total Protein (6.4-8.2) g/dl Albumin (3.4-5.0) g/dl Globulin gm/dL Albumin/Globulin Ratio (1-2) TSH 3rd Generation (0.358-3.74) uIU/mL Urine Color Yellow (Yellow) Urine Appearance Clear (Clear) Urine pH 6.5 (5.0-8.0) Ur Specific [place] 1.020 (1.005-1.030) Urine Protein Negative (Negative) Urine Glucose (UA) Negative (Negative) Urine Ketones Trace H (Negative) Urine Occult Blood Negative (Negative) Urine Nitrite Negative (Negative) Urine Bilirubin Negative (Negative) Urine Urobilinogen 0.2 (0.2-1.0) Ur Leukocyte Esterase Negative (Negative) Urine RBC Not seen (0-5) /hpf Urine WBC Not seen (0-5) /hpf Ur Squamous Epith Cells 0-5 (0-5) /hpf Urine Bacteria Moderate H (FEW) /hpf Urine Mucus Not seen (FEW) /hpf Meds: Medications Generic Name Dose Route Start Last Admin Trade Name Freq PRN Reason Stop Dose Admin Dextrose/Sodium Chloride 1,000 mls @ 125 mls/hr 05/31/20 11:45 05/31/20 12:07 Dextrose 5%-Normal Saline IV 125 mls/hr ASDIRECTED VALENCIA Administration Discontinued Medications Generic Name Dose Route Start Last Admin Trade Name Freq PRN Reason Stop Dose Admin Meclizine HCl 12.5 mg 07/23/20 11:43 05/31/20 12:08 Antivert PO 05/31/20 11:44 12.5 mg ONETIME ONE Administration Metoclopramide HCl 5 mg 05/31/20 11:43 05/31/20 12:07 Reglan IVPUSH 05/31/20 11:44 5 mg ONETIME ONE Administration - Radiology Interpretation Free Text/Narrative:: 84-year-old female presents the ED with acute benign positional vertigo symptoms. She has had paroxysmal benign positional vertigo off and on for several years. Appreciates that her hearing is getting worse over time. No increased tinnitus today. Neuro exam reveals no sustained nystagmus on lateral gaze to either direction. Cranial nerves II to XII are otherwise intact. She is in atrial fibrillation chronically but heart rate is primarily controlled by pacemaker at 60/min. Lungs sound clear with no clinical evidence of congestive failure. He has chronic edema left lower extremity. She has had a previous left carotid endarterectomy. No bruit identified. He does have a palpable heave of the apex of the heart left anterior chest suggesting cardiomegaly. Plan IV D5 normal saline at 125 mils per hour. Given Reglan 5 mg IV and meclizine 12.5 mg p.o. Routine labs will be collected including a TSH and magnesium level as she has hypomagnesemia. Her only other complaint is extra salivation particular noted at night. I have to go back and look after her dentures or plates are pushing on the soft palate which will sometimes cause extra salivation. - Re-Assessments/Exams Free Text/Narrative Re-Assessment/Exam: 05/31/20 12:59 Hematology reveals a normal white count at 7.41. Neutrophil count is 76% however. Hemoglobin is 13.4 with hematocrit of 41.2. Platelet count 192,000. PT is 26.5 with an INR of 2.56 which is considered therapeutic. X-ray done portably reveals hyperinflated lung bush. Lung parenchyma appears to be normal with no increased vascular congestion. Cardiac silhouette is essentially normal. Pacemaker left upper anterior chest. 05/31/20 13:20 Sodium 137 potassium high normal at 5.2. Chloride 100 with a bicarb of 28. Anion gap is 14.2 BUN is 21 with a creatinine of 1.4. Estimated GFR is 36 i.e. stage III chronic kidney disease. Glucose is 90 with a calcium of 9.1. Magnesium is normal at 2.2. Total bilirubin mildly elevated at 1.2. AST is 30 with an ALT of 36. Alk phosphatase is 76. Troponin I is less than 0.017. C-reactive protein is less than 0.2. Total protein is 6.9 with an albumin fraction of 4.0. TSH is normal at 1.19. 05/31/20 13:47 should not has not yet necessarily appreciated that there is any improvement in the vertigo symptoms that she stayed in the bed and has not gotten up to the bathroom yet. We will get her up walking and see how she does. Clinically she has benign paroxysmal vertigo. No other abnormalities were detected in her lab work. I will place her on Antivert 12.5 mg every 8 hours for the next 5 days in an effort to bring the symptoms under control. She was advised that the medication does not fix the problem that it only alleviate some of the symptoms. Usually 85% of people are better within 5 days due to tossing and turning and rolling over at night in bed. 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 Departure - Departure Time of Disposition: 13:48 Disposition: Home, Self-Care 01 Condition: Fair Clinical Impression: Benign paroxysmal positional vertigo due to bilateral vestibular disorder, Generalized weakness - Discharge Information *PRESCRIPTION DRUG MONITORING PROGRAM REVIEWED*: Not Applicable *COPY OF PRESCRIPTION DRUG MONITORING REPORT IN PATIENT NEETU: Not Applicable Prescriptions: Meclizine [Antivert] 12.5 mg PO TID #15 tab Instructions: Benign Positional Vertigo Referrals: Henri Prieto MD [Primary Care Provider] - Forms: ED Department Discharge Additional Instructions: Evaluation in the emergency room today in regards to acute onset of severe vertigo starting yesterday morning and persisting today. You present with signs and symptoms of benign paroxysmal vertigo. This means that the 1 of the balance mechanisms in your middle ear is not working normally. When you move your head or neck this ends a signal to the brain if the brain does not get the same signal from each ear it causes imbalance and loss of balance and a sense that you or your surroundings are spinning. Holding still and closing her eyes makes the symptoms go away. Tests were done to make sure there was no other reason metabolically to be causing vertigo symptoms and none were found. Treatment is time to get better on its own. The 5% of patients are better within 5 days of having symptoms develop. Symptoms will come back in the future. Suggest a trial of Antivert 12.5 mg tablet every 8 hours for the next 5 days. Next tablet would be due at 7 PM tonight and then again at 3:00 in the morning if you happen to wake up to pass your water. Aloe up with personal care physician if not markedly improved in 6 days time. Sepsis Event Note (ED) - Evaluation Sepsis Screening Result: No Definite Risk - Focused Exam Vital Signs: Vital Signs Temp Pulse Resp BP Pulse Ox 05/31/20 11:18 36.1 C 63 18 155/75 H 98 - My Orders Last 24 Hours: My Active Orders 05/31/20 11:45 Dextrose 5%-0.9% NaCl [Dextrose 5%-Normal Saline] 1,000 ml IV ASDIRECTED - Assessment/Plan Last 24 Hours: My Active Orders 05/31/20 11:45 Dextrose 5%-0.9% NaCl [Dextrose 5%-Normal Saline] 1,000 ml IV ASDIRECTED
[2020-05-31] MEDS ORDERED: Metoclopramide 10 MG/2 ML SDV IVPUSH ONE (11:43)
[2020-05-31] MEDS ORDERED: Meclizine 12.5 MG Tab PO ONE (11:43)
[2020-05-31] MEDS ORDERED: Dextrose 5%-0.9% NaCl 1,000 ML IV SCH (11:45)
--- NOTE | 2020-05-31 14:01 | CR ---
Chest: Portable view of the chest was obtained. Comparison: Previous chest x-ray of 07/05/16. Heart size and mediastinum are normal. Pacemaker is noted. Lungs are clear with no acute parenchymal change. Mild scoliosis is noted within the spine. Osteopenia is present. Impression: 1. Findings as described above. 2. Nothing acute is appreciated on portable chest x-ray. Diagnostic code #2 This report was dictated in MDT
== END 2020-05-31 14:20 | disposition home or self-care (01) ==
LOC: JD.ED 11:06
DX: H81.13 Benign paroxysmal vertigo, bilateral (principal); R53.1 Weakness; R04.0 Epistaxis; I48.91 Unspecified atrial fibrillation; K21.9 Gastro-esophageal reflux disease without esophagitis; R60.0 Localized edema; Z90.710 Acquired absence of both cervix and uterus; Z90.49 Acquired absence of other specified parts of digestive tract; Z88.2 Allergy status to sulfonamides; Z79.82 Long term (current) use of aspirin; Z79.899 Other long term (current) drug therapy; Z79.01 Long term (current) use of anticoagulants; R06.02 Shortness of breath
CPT/HCPCS: 36415; 71045; 80053; 81001; 83735; 83880; 84443; 84484; 85025; 85610; 86140; 96361; 96374; 99285; A9270; J2765; J7042; 99284

== ENCOUNTER 2021-02-27 17:49 | Emergency (ER) | payer MEDICARE, OTHER ==
[2021-02-27 18:17] VITALS: BP 198/90; PULSE 67
[2021-02-27] MEDS ORDERED: Sodium Chloride 0.9% 10 ML Syringe FLUSH PRN (18:29)
[2021-02-27] MEDS ORDERED: hydrALAZINE 20 MG/ML SDV IVPUSH ONE (18:30)
--- NOTE | 2021-02-27 18:53 | EDM.PDOC ---
ED HPI GENERAL MEDICAL PROBLEM - General Chief Complaint: Cardiovascular Problem Stated Complaint: HIGH BLOOD PRESSURE Time Seen by Provider: 02/27/21 18:29 Source of Information: Reports: Patient, RN Notes Reviewed History Limitations: Reports: No Limitations - History of Present Illness INITIAL COMMENTS - FREE TEXT/NARRATIVE: Patient is an 85-year-old female who presents to the ER for the evaluation of her elevated blood pressure. Patient was seen by her primary care provider, Dr. Prieto last week Thursday, and placed on blood pressure medication. She believes this was losartan 50 mg. She has been taking it as prescribed. She states that she still having elevated blood pressure readings at home, feeling lethargic, and "just not right". She was found to have a blood pressure 198/90 at the time of triage, and then has been steadily in the 200s systolically since being here. She does have a history of a myocardial infarction 5 years ago, with stent placement also a pacemaker was placed at that time. Her installer is Dr. Hannah. She denies any fevers or chills, cough or shortness of breath, she is not having any chest pain, she is not experiencing any nausea/vomiting/diarrhea. On a a different note, family member raised concern about an issue with her right ankle, patient notes she has been having pain with this for some time, normally when she just puts pressure on the lateral portion of her ankle, at night when she is sleeping. There is some bruising around the area, she denies any trauma to the area. There are no major open wounds that are apparent. - Related Data Allergies Allergy/AdvReac Type Severity Reaction Status Date / Time metronidazole [From Flagyl] AdvReac Nausea and Verified 02/27/21 18:17 Vomiting Home Meds: Home Meds Amiodarone HCl 200 mg PO DAILY 05/01/15 [History] Aspirin [Adult Low Dose Aspirin EC] 81 mg PO DAILY #30 tablet. 05/02/15 [Rx] Omeprazole 40 mg PO DAILY 07/25/15 [History] Magnesium Oxide [Magnesium] 400 mg PO DAILY 07/30/16 [History] atorvaSTATin [Lipitor] 40 mg PO BEDTIME 07/30/16 [History] Acetaminophen [Tylenol] 650 mg PO Q4H PRN 09/13/19 [History] Warfarin Sodium 1.5 mg PO DAILY 09/13/19 [History] Montelukast [Singulair] 10 mg PO DAILY #30 tab 04/24/20 [Rx] Meclizine [Antivert] 12.5 mg PO TID #15 tab 05/31/20 [Rx] Past Medical History HEENT History: Reports: Allergic Rhinitis Other HEENT History: has "flipper" partial Cardiovascular History: Reports: Afib, Angina, Blood Clots/VTE/DVT, Pacemaker, Stents, Other (See Below) Other Cardiovascular History: Hx of bradycardia, cardiogenic shock, irregular heart beat, carotid bruit, cerebrovascular disease, mitral and tricuspid regurgitation, pericardial effusion,sick sinus syndrome, aortic valve sclerosis, angian, blood clot, STEMI, cardioverson Respiratory History: Reports: Bronchitis, Recurrent Other Respiratory History: Hx of choking, cough Gastrointestinal History: Reports: GERD, Hiatal Hernia, Other (See Below) Other Gastrointestinal History: Barretts esophagus, LUQ pain, dysphagia, diverticulosis, constipation Genitourinary History: Reports: Other (See Below) Other Genitourinary History: kidney disease HEART NURSE History: Reports: Other HEART NURSE History: hysterectomy Other Musculoskeletal History: L knee pain Neurological History: Reports: Other (See Below) Other Neuro History: lumbar stenosis with neurogenic claudication, dizziness, vertgo, lamiectomy discectomy Psychiatric History: Reports: None Endocrine/Metabolic History: Reports: None Hematologic History: Reports: None Immunologic History: Reports: None Oncologic (Cancer) History: Reports: None Dermatologic History: Reports: None - Infectious Disease History Infectious Disease History: Reports: None - Past Surgical History HEENT Surgical History: Reports: Cataract Surgery Cardiovascular Surgical History: Reports: Carotid Endarterectomy, Pacer Other Cardiovascular Surgeries/Procedures: afib corrected with cardioversion 8-9 years ago Respiratory Surgical History: Reports: None GI Surgical History: Reports: Appendectomy Female Surgical History: Reports: Hysterectomy Endocrine Surgical History: Reports: None Neurological Surgical History: Reports: Laminectomy Oncologic Surgical History: Reports: None Dermatological Surgical History: Reports: None Social & Family History - Tobacco Use Tobacco Use Status *Q: Never Tobacco User - Caffeine Use Caffeine Use: Reports: Coffee - Recreational Drug Use Recreational Drug Use: No - Living Situation & Occupation Living situation: Reports: Occupation: Retired ED ROS GENERAL - Review of Systems Review Of Systems: Comprehensive ROS is negative, except as noted in HPI. ED EXAM, GENERAL - Physical Exam Exam: See Below Exam Limited By: No Limitations General Appearance: Alert, WD/WN, No Apparent Distress Eye Exam: Bilateral Eye: EOMI, Normal Inspection Respiratory/Chest: No Respiratory Distress, Lungs Clear, Normal Breath Sounds, No Accessory Muscle Use, Chest Non-Tender Cardiovascular: Normal Peripheral Pulses, Regular Rate, Rhythm, No Edema Peripheral Pulses: 2+: Radial (L), Radial (R) GI/Abdominal: Normal Bowel Sounds, Soft, Non-Tender, No Distention, No Mass Extremities: Normal Range of Motion, Slow Capillary Refill (hands are slightly dusky) Neurological: Alert, Oriented, Normal Cognition, No Motor/Sensory Deficits Psychiatric: Normal Affect, Normal Mood Skin Exam: Warm, Dry, Intact, No Rash, Cyanosis (slight dusky appearance to the bilateral hands) #1 Interpretation EKG Date: 02/27/21 Time: 18:32 Rhythm: NSR (atrial paced at 60bpm) Rate (Beats/Min): 60 [place]: LAD-Left [place] Deviation (borderline) P-Wave: Present QRS: Normal ST-T: Normal QT: Normal EKG Interpretation Comments: No obvious ischemia or acute ST changes noted, reviewed by myself and Dr. Hanley. Course - Vital Signs Last Recorded V/S: Last Vital Signs Temp 97.7 F 02/27/21 18:08 Pulse 67 02/27/21 18:08 Resp 9 L 02/27/21 18:08 BP 198/90 H 02/27/21 18:08 Pulse Ox 98 02/27/21 18:08 - Orders/Labs/Meds Orders: Active Orders 24 hr Category Date Time Status EKG Documentation Completion [RC] STAT Care 02/27/21 18:29 Ordered Peripheral IV Care [RC] . DIRECTED Care 02/27/21 18:29 Ordered Ankle Min 3V Rt [CR] Stat Exams 02/27/21 18:41 Ordered Chest 1V Frontal [CR] Stat Exams 02/27/21 18:29 Ordered Sodium Chloride 0.9% [Saline Flush] Med 02/27/21 18:29 Ordered 10 ml FLUSH ASDIRECTED PRN Peripheral IV Insertion Adult [OM.PC] Stat Oth 02/27/21 18:29 Ordered Medication Orders Sodium Chloride (Sodium Chloride 0.9% 10 Ml Syringe) 10 ml FLUSH ASDIRECTED PRN PRN Reason: Keep Vein Open Last Admin: 02/27/21 19:08 Dose: 10 ml Documented by: MAKAYLA Labs: Laboratory Tests 02/27/21 02/27/21 02/27/21 Range/Units 18:50 18:50 18:50 WBC 8.05 (3.98-10.04) K/mm3 RBC 4.74 (3.98-5.22) M/mm3 Hgb 14.4 (11.2-15.7) gm/dl Hct 43.0 (34.1-44.9) % MCV 90.7 (79.4-94.8) fl MCH 30.4 (25.6-32.2) pg MCHC 33.5 (32.2-35.5) g/dl RDW Std Deviation 44.0 (36.4-46.3) fL Plt Count 175 L (182-369) K/mm3 MPV 10.7 (9.4-12.3) fl Neut % (Auto) 75.4 H (34.0-71.1) % Lymph % (Auto) 14.5 L (19.3-51.7) % [place] % (Auto) 8.2 (4.7-12.5) % Eos % (Auto) 1.4 (0.7-5.8) Baso % (Auto) 0.4 (0.1-1.2) % Neut # (Auto) 6.07 (1.56-6.13) K/mm3 Lymph # (Auto) 1.17 L (1.18-3.74) K/mm3 [place] # (Auto) 0.66 H (0.24-0.36) K/mm3 Eos # (Auto) 0.11 (0.04-0.36) K/mm3 Baso # (Auto) 0.03 (0.01-0.08) K/mm3 PT 18.6 H (9.7-12.0) SECONDS INR 1.76 APTT 34.1 H (21.7-31.4) SECONDS Sodium 139 (136-145) mEq/L Potassium 4.3 (3.5-5.1) mEq/L Chloride 102 (98-107) mEq/L Carbon Dioxide 29 (21-32) mEq/L Anion Gap 12.3 (5-15) BUN 27 H (7-18) mg/dL Creatinine 1.1 H (0.55-1.02) mg/dL Est Cr Clr Drug Dosing 31.70 mL/min Estimated GFR (MDRD) 47 (>60) mL/min BUN/Creatinine Ratio 24.5 H (14-18) Glucose 103 (83-115) mg/dL Calcium 9.3 (8.5-10.1) mg/dL Magnesium 2.7 H (1.8-2.4) mg/dl Total Bilirubin 0.9 (0.2-1.0) mg/dL AST 34 (15-37) U/L ALT 37 (14-59) U/L Alkaline Phosphatase 103 (46-116) U/L Troponin I < 0.017 (0.00-0.056) ng/mL NT-Pro-B Natriuret Pep (0-450) pg/mL Total Protein 7.6 (6.4-8.2) g/dl Albumin 4.1 (3.4-5.0) g/dl Globulin 3.5 gm/dL Albumin/Globulin Ratio 1.2 (1-2) 02/27/21 Range/Units 18:50 WBC (3.98-10.04) K/mm3 RBC (3.98-5.22) M/mm3 Hgb (11.2-15.7) gm/dl Hct (34.1-44.9) % MCV (79.4-94.8) fl MCH (25.6-32.2) pg MCHC (32.2-35.5) g/dl RDW Std Deviation (36.4-46.3) fL Plt Count (182-369) K/mm3 MPV (9.4-12.3) fl Neut % (Auto) (34.0-71.1) % Lymph % (Auto) (19.3-51.7) % [place] % (Auto) (4.7-12.5) % Eos % (Auto) (0.7-5.8) Baso % (Auto) (0.1-1.2) % Neut # (Auto) (1.56-6.13) K/mm3 Lymph # (Auto) (1.18-3.74) K/mm3 [place] # (Auto) (0.24-0.36) K/mm3 Eos # (Auto) (0.04-0.36) K/mm3 Baso # (Auto) (0.01-0.08) K/mm3 PT (9.7-12.0) SECONDS INR APTT (21.7-31.4) SECONDS Sodium (136-145) mEq/L Potassium (3.5-5.1) mEq/L Chloride (98-107) mEq/L Carbon Dioxide (21-32) mEq/L Anion Gap (5-15) BUN (7-18) mg/dL Creatinine (0.55-1.02) mg/dL Est Cr Clr Drug Dosing mL/min Estimated GFR (MDRD) (>60) mL/min BUN/Creatinine Ratio (14-18) Glucose (83-115) mg/dL Calcium (8.5-10.1) mg/dL Magnesium (1.8-2.4) mg/dl Total Bilirubin (0.2-1.0) mg/dL AST (15-37) U/L ALT (14-59) U/L Alkaline Phosphatase (46-116) U/L Troponin I (0.00-0.056) ng/mL NT-Pro-B Natriuret Pep 416 (0-450) pg/mL Total Protein (6.4-8.2) g/dl Albumin (3.4-5.0) g/dl Globulin gm/dL Albumin/Globulin Ratio (1-2) Meds: Medications Generic Name Dose Route Start Last Admin Trade Name Freq PRN Reason Stop Dose Admin Sodium Chloride 10 ml 02/27/21 18:29 02/27/21 19:08 Sodium Chloride 0.9% 10 Ml Syringe FLUSH 10 ml ASDIRECTED PRN Administration Keep Vein Open Discontinued Medications Generic Name Dose Route Start Last Admin Trade Name Freq PRN Reason Stop Dose Admin Acetaminophen 650 mg 02/27/21 19:28 Acetaminophen 325 Mg Tab PO 02/27/21 19:29 NOW ONE Hydralazine HCl 10 mg 02/27/21 18:30 02/27/21 19:08 Hydralazine 20 Mg/Ml Sdv IVPUSH 02/27/21 18:31 10 mg ONETIME ONE Administration - Re-Assessments/Exams Free Text/Narrative Re-Assessment/Exam: 02/27/21 18:56 Patient presents to the ER for her elevated blood pressure readings. We will go ahead get IV started, get some baseline labs, EKG, chest x-ray for initial evaluation. She will be given hydralazine 10 mg to try to decrease her blood pressure, we will continue watching blood pressure. 02/27/21 20:05 Laboratory evaluation is fairly unremarkable, troponin is undetectably low, patient's chest x-ray is within normal limits, her ankle x-ray also demonstrates no acute fracture or bony abnormalities. Likely the patient either sprained her ankle sometime ago, and is having residual issues with it versus possible skin breakdown over the lateral malleolus. It does not appear to be reddened or inflamed, or infectious at this time. Patient's blood pressure has responded nicely and has been 130s systolically for quite a few readings. Patient notes that her headache has subsided. She was given 1 dose of oral Tylenol. Patient notes she is still feeling somewhat fatigued and would like to go home to sleep. This is fine with me I will discharge her home with general recommendations. Departure - Departure Time of Disposition: 20:06 Disposition: Home, Self-Care 01 Condition: Good Clinical Impression: Elevated blood pressure reading in office with diagnosis of hypertension Instructions: Hypertension, Adult, [id number], Managing Your Hypertension Referrals: Henri Prieto MD [Primary Care Provider] - Forms: ED Department Discharge Additional Instructions: You were evaluated in the ER today for your elevated blood pressure readings. Laboratory evaluation done at today's visit along with EKG, chest x-ray, and an ankle x-ray all were unremarkable, you are not suffering from a heart attack at today's visit. You were given some IV medications to help lower your blood pressure, and this seemed to work well for you. Please go home, rest tonight, and then resume checking your blood pressure once or twice a day for the next few days. Please take all other medications as previously prescribed by your regular care provider. Please attend all other clinic appointments as set forth by your primary care provider for ongoing management of your hypertension. You may use 600 mg ibuprofen or 500 mg Tylenol every 6 hours as needed for further pain or discomfort. It is likely that you may have suffered a sprained your ankle sometime ago, and you are having residual issues with this. You may try to use cold packs or heat packs to the area, and elevate the foot to see if this helps relieve some of the pain. Please return to the ER at any time if symptoms change or worsen. Sepsis Event Note (ED) - Evaluation Sepsis Screening Result: No Definite Risk - Focused Exam Vital Signs: Vital Signs Temp Pulse Resp BP Pulse Ox 02/27/21 18:08 97.7 F 67 9 L 198/90 H 98 - My Orders Last 24 Hours: My Active Orders 02/27/21 18:29 EKG Documentation Completion [RC] STAT Peripheral IV Care [RC] . DIRECTED Chest 1V Frontal [CR] Stat Sodium Chloride 0.9% [Saline Flush] 10 ml FLUSH ASDIRECTED PRN Peripheral IV Insertion Adult [OM.PC] Stat 02/27/21 18:41 Ankle Min 3V Rt [CR] Stat - Assessment/Plan Last 24 Hours: My Active Orders 02/27/21 18:29 EKG Documentation Completion [RC] STAT Peripheral IV Care [RC] . DIRECTED Chest 1V Frontal [CR] Stat Sodium Chloride 0.9% [Saline Flush] 10 ml FLUSH ASDIRECTED PRN Peripheral IV Insertion Adult [OM.PC] Stat 02/27/21 18:41 Ankle Min 3V Rt [CR] Stat
[2021-02-27] MEDS ORDERED: Acetaminophen 325 MG Tab PO ONE (19:28)
--- NOTE | 2021-02-28 08:21 | CR ---
Chest: Portable view of the chest was obtained. Comparison: Prior chest x-ray of 07/05/16. Heart size is normal. Tortuous thoracic aorta is noted. Pacemaker is seen. Lungs are clear with no acute parenchymal change. Mild scoliosis is noted within the spine with mild degenerative change. Impression: 1. Findings as noted above. 2. Nothing acute is appreciated on portable chest x-ray. Diagnostic code #2
--- NOTE | 2021-02-28 08:22 | CR ---
Right ankle: 4 views of the right ankle were obtained. Ankle mortise is symmetric. Osteopenia is seen. Vascular calcification is noted. Minimal plantar spur is seen. No acute fracture, dislocation or other bony abnormality is appreciated. Impression: 1. Findings as noted above. 2. No acute osseous finding is seen. Diagnostic code #2
== END 2021-02-27 20:20 | disposition home or self-care (01) ==
LOC: JD.ED 17:49
DX: I10 Essential (primary) hypertension (principal); K21.9 Gastro-esophageal reflux disease without esophagitis; I48.91 Unspecified atrial fibrillation; I25.2 Old myocardial infarction; Z79.01 Long term (current) use of anticoagulants; Z88.1 Allergy status to other antibiotic agents; Z79.82 Long term (current) use of aspirin; Z95.0 Presence of cardiac pacemaker; Z86.718 Personal history of other venous thrombosis and embolism; Z79.899 Other long term (current) drug therapy
CPT/HCPCS: 36415; 71045; 73610; 80053; 83735; 83880; 84484; 85025; 85610; 85730; 93005; 96374; 99284; A9270; J0360; 93010; 99283

== ENCOUNTER 2021-03-18 17:30 | Emergency (ER) | payer MEDICARE, OTHER ==
[2021-03-18] MEDS ORDERED: Sodium Chloride 0.9% 10 ML Syringe FLUSH PRN (17:57)
[2021-03-18] MEDS ORDERED: hydrALAZINE 20 MG/ML SDV IVPUSH ONE (18:25)
--- NOTE | 2021-03-18 19:17 | EDM.PDOC ---
ED HPI GENERAL MEDICAL PROBLEM - General Chief Complaint: Chest Pain Stated Complaint: CHEST PAIN/HIGH BP Time Seen by Provider: 03/18/21 17:44 Source of Information: Reports: Patient, RN Notes Reviewed History Limitations: Reports: No Limitations - History of Present Illness INITIAL COMMENTS - FREE TEXT/NARRATIVE: Patient is an 85 year old female presenting to the ER with c/o left sided chest pain that began aproximately 2.5 hours prior to coming to the ER. She reports that she had an intense coughing fit this afternoon which is chronic for her. Around 1530, she experienced intense, 10/10 left sided chest pain that began when she got up and walked. Pain is worse with deep breathing. It has improved significantly since it's onset but is still present with movement and deep breathing. Pain does not radiate and she denies SOB or diaphoresis. She also reports elevated BP at home. She states that it was 209 systolically and that she has been having problems with elevated BP's at home. Her primary care, Dr. Prieto, had started her on Losartan 50mg daily which she states she has been taking. She was seen in this ER recently with c/o elevated BP. She received hydralazine which did improve her BP and she reports that it was doing well for a few days after that. She reports that she is often anxious and has a difficult time calming herself down. BP on triage was found to be elevated at 223/112. Left Mid-Sternal Chest Pain Score (Numeric/FACES): 10 - Related Data Allergies Allergy/AdvReac Type Severity Reaction Status Date / Time metronidazole [From Flagyl] AdvReac Nausea and Verified 03/18/21 17:47 Vomiting Home Meds: Home Meds Amiodarone HCl 200 mg PO DAILY 05/01/15 [History] Aspirin [Adult Low Dose Aspirin EC] 81 mg PO DAILY #30 tablet. 05/02/15 [Rx] Omeprazole 40 mg PO DAILY 07/25/15 [History] Magnesium Oxide [Magnesium] 400 mg PO DAILY 07/30/16 [History] atorvaSTATin [Lipitor] 40 mg PO BEDTIME 07/30/16 [History] Acetaminophen [Tylenol] 650 mg PO Q4H PRN 09/13/19 [History] Warfarin Sodium 1.5 mg PO DAILY 09/13/19 [History] Montelukast [Singulair] 10 mg PO DAILY #30 tab 04/24/20 [Rx] Meclizine [Antivert] 12.5 mg PO TID #15 tab 05/31/20 [Rx] Past Medical History HEENT History: Reports: Allergic Rhinitis Other HEENT History: has "flipper" partial Cardiovascular History: Reports: Afib, Angina, Blood Clots/VTE/DVT, Pacemaker, Stents, Other (See Below) Other Cardiovascular History: Hx of bradycardia, cardiogenic shock, irregular heart beat, carotid bruit, cerebrovascular disease, mitral and tricuspid regurgitation, pericardial effusion,sick sinus syndrome, aortic valve sclerosis, angian, blood clot, STEMI, cardioverson Respiratory History: Reports: Bronchitis, Recurrent Other Respiratory History: Hx of choking, cough Gastrointestinal History: Reports: GERD, Hiatal Hernia, Other (See Below) Other Gastrointestinal History: Barretts esophagus, LUQ pain, dysphagia, diverticulosis, constipation Genitourinary History: Reports: Other (See Below) Other Genitourinary History: kidney disease [employer] History: Reports: Other [employer]ER History: hysterectomy Other Musculoskeletal History: L knee pain Neurological History: Reports: Other (See Below) Other Neuro History: lumbar stenosis with neurogenic claudication, dizziness, vertgo, lamiectomy discectomy Psychiatric History: Reports: None Endocrine/Metabolic History: Reports: None Hematologic History: Reports: None Immunologic History: Reports: None Oncologic (Cancer) History: Reports: None Dermatologic History: Reports: None - Infectious Disease History Infectious Disease History: Reports: None - Past Surgical History HEENT Surgical History: Reports: Cataract Surgery Cardiovascular Surgical History: Reports: Carotid Endarterectomy, Pacer Other Cardiovascular Surgeries/Procedures: afib corrected with cardioversion 8-9 years ago Respiratory Surgical History: Reports: None GI Surgical History: Reports: Appendectomy Female Surgical History: Reports: Hysterectomy Endocrine Surgical History: Reports: None Neurological Surgical History: Reports: Laminectomy Oncologic Surgical History: Reports: None Dermatological Surgical History: Reports: None Social & Family History - Tobacco Use Tobacco Use Status *Q: Never Tobacco User Second Hand Smoke Exposure: No - Caffeine Use Caffeine Use: Reports: Coffee - Recreational Drug Use Recreational Drug Use: No - Living Situation & Occupation Living situation: Reports: Occupation: Retired ED ROS GENERAL - Review of Systems Review Of Systems: See Below Constitutional: Reports: No Symptoms. Denies: Fever, Chills, Weakness HEENT: Reports: No Symptoms Respiratory: Reports: Cough (chronic). Denies: Shortness of Breath Cardiovascular: Reports: Chest Pain. Denies: Lightheadedness, Palpitations, Syncope Endocrine: Reports: No Symptoms GI/Abdominal: Reports: No Symptoms : Reports: No Symptoms Musculoskeletal: Reports: No Symptoms Skin: Reports: No Symptoms Neurological: Reports: No Symptoms Psychiatric: Reports: Anxiety Hematologic/Lymphatic: Reports: No Symptoms Immunologic: Reports: No Symptoms ED EXAM, GENERAL - Physical Exam Exam: See Below Exam Limited By: No Limitations General Appearance: Alert, WD/WN, No Apparent Distress Respiratory/Chest: No Respiratory Distress, Lungs Clear, Normal Breath Sounds, No Accessory Muscle Use, Other (mild tenderness to palpation below the left breast) Cardiovascular: Normal Peripheral Pulses, Regular Rate, Rhythm, No Edema, No Gallop, No JVD, No Murmur, No Rub GI/Abdominal: Normal Bowel Sounds, Soft, Non-Tender, No Organomegaly, No Distention, No Abnormal Bruit, No Mass Neurological: Alert, Oriented, CN II-XII Intact, Normal Cognition, Normal Gait, Normal Reflexes, No Motor/Sensory Deficits Psychiatric: Normal Affect, Normal Mood Skin Exam: Warm, Dry, Intact, Normal Color, No Rash #1 Interpretation EKG Date: 03/18/21 Time: 17:38 Rhythm: Other (atrial paced) Rate (Beats/Min): 78 Delta: Normal P-Wave: Present QRS: Normal ST-T: Normal QT: Normal MI/PQ Interval: prolonged EKG Interpretation Comments: Atrial paced complex at 78 Prolonged MI interval RSR in V1 or V2, right jugular conduction delay or right ventricular hypertrophy Probable left ventricular hypertrophy EKG interpreted by Dr. Dayan TORRES Course - Vital Signs Last Recorded V/S: Last Vital Signs Temp 97.7 F 03/18/21 17:43 Pulse 60 03/18/21 19:28 Resp 16 03/18/21 17:43 BP 150/66 H 03/18/21 19:28 Pulse Ox 98 03/18/21 17:43 - Orders/Labs/Meds Orders: Active Orders 24 hr Category Date Time Status EKG Documentation Completion [RC] STAT Care 03/18/21 17:57 Active Peripheral IV Care [RC] . DIRECTED Care 03/18/21 17:58 Active Chest 1V Frontal [CR] Stat Exams 03/18/21 17:58 Taken Sodium Chloride 0.9% [Saline Flush] Med 03/18/21 17:57 Active 10 ml FLUSH ASDIRECTED PRN Peripheral IV Insertion Adult [OM.PC] Stat Oth 03/18/21 17:57 Ordered Medication Orders Sodium Chloride (Sodium Chloride 0.9% 10 Ml Syringe) 10 ml FLUSH ASDIRECTED PRN PRN Reason: Keep Vein Open Last Admin: 03/18/21 18:06 Dose: 10 ml Documented by: ALE Labs: Laboratory Tests 03/18/21 03/18/21 03/18/21 Range/Units 17:40 17:40 17:40 WBC 8.00 (3.98-10.04) K/mm3 RBC 4.82 (3.98-5.22) M/mm3 Hgb 14.4 (11.2-15.7) gm/dl Hct 44.1 (34.1-44.9) % MCV 91.5 (79.4-94.8) fl MCH 29.9 (25.6-32.2) pg MCHC 32.7 (32.2-35.5) g/dl RDW Std Deviation 45.6 (36.4-46.3) fL Plt Count 175 L (182-369) K/mm3 MPV 11.4 (9.4-12.3) fl Neut % (Auto) 71.2 H (34.0-71.1) % Lymph % (Auto) 17.5 L (19.3-51.7) % [place] % (Auto) 8.9 (4.7-12.5) % Eos % (Auto) 1.8 (0.7-5.8) Baso % (Auto) 0.5 (0.1-1.2) % Neut # (Auto) 5.70 (1.56-6.13) K/mm3 Lymph # (Auto) 1.40 (1.18-3.74) K/mm3 [place] # (Auto) 0.71 H (0.24-0.36) K/mm3 Eos # (Auto) 0.14 (0.04-0.36) K/mm3 Baso # (Auto) 0.04 (0.01-0.08) K/mm3 Sodium 138 (136-145) mEq/L Potassium 4.2 (3.5-5.1) mEq/L Chloride 102 (98-107) mEq/L Carbon Dioxide 27 (21-32) mEq/L Anion Gap 13.2 (5-15) BUN 31 H (7-18) mg/dL Creatinine 1.5 H (0.55-1.02) mg/dL Est Cr Clr Drug Dosing TNP Estimated GFR (MDRD) 33 (>60) mL/min BUN/Creatinine Ratio 20.7 H (14-18) Glucose 91 (70-99) mg/dL Calcium 9.0 (8.5-10.1) mg/dL Total Bilirubin 1.0 (0.2-1.0) mg/dL AST 34 (15-37) U/L ALT 35 (14-59) U/L Alkaline Phosphatase 104 (46-116) U/L Troponin I < 0.017 (0.00-0.056) ng/mL C-Reactive Protein 0.4 (<1.0) mg/dL NT-Pro-B Natriuret Pep 402 (0-450) pg/mL Total Protein 7.8 (6.4-8.2) g/dl Albumin 4.1 (3.4-5.0) g/dl Globulin 3.7 gm/dL Albumin/Globulin Ratio 1.1 (1-2) /08/29 Range/Units 20:19 WBC (3.98-10.04) K/mm3 RBC (3.98-5.22) M/mm3 Hgb (11.2-15.7) gm/dl Hct (34.1-44.9) % MCV (79.4-94.8) fl MCH (25.6-32.2) pg MCHC (32.2-35.5) g/dl RDW Std Deviation (36.4-46.3) fL Plt Count (182-369) K/mm3 MPV (9.4-12.3) fl Neut % (Auto) (34.0-71.1) % Lymph % (Auto) (19.3-51.7) % [place] % (Auto) (4.7-12.5) % Eos % (Auto) (0.7-5.8) Baso % (Auto) (0.1-1.2) % Neut # (Auto) (1.56-6.13) K/mm3 Lymph # (Auto) (1.18-3.74) K/mm3 [place] # (Auto) (0.24-0.36) K/mm3 Eos # (Auto) (0.04-0.36) K/mm3 Baso # (Auto) (0.01-0.08) K/mm3 Sodium (136-145) mEq/L Potassium (3.5-5.1) mEq/L Chloride (98-107) mEq/L Carbon Dioxide (21-32) mEq/L Anion Gap (5-15) BUN (7-18) mg/dL Creatinine (0.55-1.02) mg/dL Est Cr Clr Drug Dosing Estimated GFR (MDRD) (>60) mL/min BUN/Creatinine Ratio (14-18) Glucose (70-99) mg/dL Calcium (8.5-10.1) mg/dL Total Bilirubin (0.2-1.0) mg/dL AST (15-37) U/L ALT (14-59) U/L Alkaline Phosphatase (46-116) U/L Troponin I < 0.017 (0.00-0.056) ng/mL C-Reactive Protein (<1.0) mg/dL NT-Pro-B Natriuret Pep (0-450) pg/mL Total Protein (6.4-8.2) g/dl Albumin (3.4-5.0) g/dl Globulin gm/dL Albumin/Globulin Ratio (1-2) Meds: Medications Generic Name Dose Route Start Last Admin Trade Name Freq PRN Reason Stop Dose Admin Sodium Chloride 10 ml 03/18/21 17:57 03/18/21 18:06 Sodium Chloride 0.9% 10 Ml Syringe FLUSH 10 ml ASDIRECTED PRN Administration Keep Vein Open Discontinued Medications Generic Name Dose Route Start Last Admin Trade Name Freq PRN Reason Stop Dose Admin Hydralazine HCl 10 mg 03/18/21 18:25 03/18/21 18:38 Hydralazine 20 Mg/Ml Sdv IVPUSH 03/18/21 18:26 10 mg ONETIME ONE Administration - Re-Assessments/Exams Free Text/Narrative Re-Assessment/Exam: 03/18/21 0470 Hematology was significant for BUN elevated at 31, creatinine 1.5. Troponin was undetectably low. EKG shows no evidence of acute ischemia. Blood pressure does remain elevated in the low 200s systolically. I have ordered hydralazine 10 mg IV to be given now. We will plan to repeat troponin 2 hours after the initial draw. 03/18/21 20:56 Blood pressure has improved to 129/59 after the hydralazine was given. Repeat troponin was undetectably low as well. Discussed with patient that her pain is likely musculoskeletal in nature related to her chronic cough. Recommend Tylenol as well as hot pack to the area. Recommend that she check her blood pressures at home routinely and keep a log of these. She should follow-up with her primary care provider to have her blood pressure medications adjusted as needed. Discussed return precautions. Discharge instructions as documented. Departure - Departure Time of Disposition: 21:01 Disposition: Home, Self-Care Condition: Good Clinical Impression: Atypical chest pain Instructions: Chest Wall Pain, [id number] Referrals: Henri Prieto MD [Primary Care Provider] - Forms: ED Department Discharge Additional Instructions: You were seen in the emergency department today for evaluation of left-sided chest pain and elevated blood pressure. Work-up included blood work, EKG of your heart, and chest x-ray. Results of your work-up were found to be normal. You are not having a heart attack. While in the ER, you did receive a small dose of blood pressure medication through your IV which did improve your blood pressure. Recommend that you continue the medications that you are currently prescribed. Check your blood pressure randomly at home and keep a log of the readings. Follow-up with your primary care provider or the nurse practitioner in [place] to have blood pressure meds adjusted as needed. As we discussed, the cause of your left-sided chest discomfort is likely caused by a muscle strain related to your chronic cough. Recommend Tylenol as needed for discomfort. You may apply a hot pack over the area for comfort as well. If you should experience any new or worsening symptoms, please not hesitate to return to the ER for reevaluation. Sepsis Event Note (ED) - Evaluation Sepsis Screening Result: No Definite Risk - Focused Exam Vital Signs: Vital Signs Temp Pulse Resp BP Pulse Ox 03/18/21 19:28 60 150/66 H 03/18/21 17:43 97.7 F 85 16 223/102 H 98 - My Orders Last 24 Hours: My Active Orders 03/18/21 17:57 EKG Documentation Completion [RC] STAT Sodium Chloride 0.9% [Saline Flush] 10 ml FLUSH ASDIRECTED PRN Peripheral IV Insertion Adult [OM.PC] Stat 03/18/21 17:58 Peripheral IV Care [RC] . DIRECTED Chest 1V Frontal [CR] Stat - Assessment/Plan Last 24 Hours: My Active Orders 03/18/21 17:57 EKG Documentation Completion [RC] STAT Sodium Chloride 0.9% [Saline Flush] 10 ml FLUSH ASDIRECTED PRN Peripheral IV Insertion Adult [OM.PC] Stat 03/18/21 17:58 Peripheral IV Care [RC] . DIRECTED Chest 1V Frontal [CR] Stat
[2021-03-18 19:28] VITALS: BP 150/66; PULSE 60
--- NOTE | 2021-03-19 09:04 | CR ---
Chest: Portable view of the chest was obtained. Comparison: Prior chest x-ray of 02/27/21. Tortuous thoracic aorta is noted. Heart size is within normal limits. Lungs are clear with no acute parenchymal change. Bichamber pacemaker is noted. Slight scoliosis is noted within the spine. Surgical clips are seen overlying the left lung apex. Impression: 1. Findings as noted above which remain stable. 2. Nothing acute is otherwise seen. Diagnostic code #2
== END 2021-03-18 21:19 | disposition home or self-care (01) ==
LOC: JD.ED 17:30
DX: R07.89 Other chest pain (principal); R05 Cough; I48.91 Unspecified atrial fibrillation; K21.9 Gastro-esophageal reflux disease without esophagitis; Z86.718 Personal history of other venous thrombosis and embolism; Z88.1 Allergy status to other antibiotic agents; Z79.82 Long term (current) use of aspirin; Z79.01 Long term (current) use of anticoagulants; Z79.899 Other long term (current) drug therapy
CPT/HCPCS: 36415; 71045; 80053; 83880; 84484; 85025; 86140; 93005; 96374; 99285; J0360; 99283

== ENCOUNTER 2021-05-30 10:38 | Emergency (ER) | payer MEDICARE, OTHER ==
[2021-05-30] MEDS ORDERED: Sodium Chloride 0.9% 1,000 ML IV STA (11:17)
[2021-05-30] MEDS ORDERED: Sodium Chloride 0.9% 10 ML Syringe FLUSH PRN (11:17)
--- NOTE | 2021-05-30 11:48 | CT ---
Head CT Technique: Multiple axial sections through the brain were obtained. Intravenous contrast was not utilized. Reconstructed coronal and sagittal images were obtained. Comparison: Prior head CT study of 04/24/20. Findings: Ventricles along with basal cisterns and sulci over the convexities are mildly prominent. Mild diminished density is noted within the periventricular white matter which is compatible with small vessel ischemic demyelination change. No other abnormal parenchymal densities are seen. No evidence of intracranial hemorrhage is seen. No midline shift or mass-effect is seen. Bone window settings were reviewed. No acute calvarial abnormality is appreciated. Visualized mastoid sinuses are clear. Slight mucosal thickening is noted within an anterior right maxillary sinus and within the ethmoid sinuses which are likely chronic. Vascular calcification is seen within the carotid siphon and vertebral vessels. Impression: 1. Mild senescent change as noted above. 2. Minimal sinus findings which are likely chronic. 3. Nothing acute is appreciated on noncontrast head CT study. Diagnostic code #2
--- NOTE | 2021-05-30 12:17 | CR ---
Chest: 2 views of the chest were obtained. Comparison: Prior chest x-ray of 03/18/21. Heart size is within normal limits. Tortuous thoracic aorta is seen. Bichamber pacemaker is noted. Lungs are clear with no acute parenchymal change. Bony structures are osteopenic. Mild kyphosis is present. Impression: 1. Findings as noted above. 2. Nothing acute is appreciated on two-view chest x-ray. Diagnostic code #2
--- NOTE | 2021-05-30 12:42 | EDM.PDOC ---
ED HPI GENERAL MEDICAL PROBLEM - General Chief Complaint: Neurological Problem Stated Complaint: dizziness Time Seen by Provider: 05/30/21 11:04 Source of Information: Reports: Patient, RN Notes Reviewed History Limitations: Reports: No Limitations - History of Present Illness INITIAL COMMENTS - FREE TEXT/NARRATIVE: Patient is an 85-year-old female presenting to the emergency department with complaints of episodes of dizziness and weakness. Reports that symptoms occur mostly when she is up and moving around, but do occur upon standing. Symptoms do improve if she lies down. She feels that she is off balance and "walks like she is drunk ". She also reports feeling generalized weakness. She has not had any recent syncopal episodes. The last time that she feels that she fainted was about 6 months ago. She reports that she has been having these symptoms for quite some time, however they seem to be increasing in frequency. She does not feel like the room is spinning but does not necessarily feel lightheaded either. She has difficulty explaining what she feels. She does report feeling off balance and that she has to hold onto things to walk. She denies any fever, chills, cough, chest pain, shortness of breath, headaches, recent head injuries, abdominal pain, nausea, vomiting, diarrhea, or dysuria. Primary care provider is Dr. Prieto. - Related Data Allergies Allergy/AdvReac Type Severity Reaction Status Date / Time metronidazole [From Flagyl] AdvReac Nausea and Verified 05/30/21 11:10 Vomiting Home Meds: Home Meds Amiodarone HCl 200 mg PO DAILY 05/01/15 [History] Aspirin [Adult Low Dose Aspirin EC] 81 mg PO DAILY #30 tablet. 05/02/15 [Rx] Omeprazole 40 mg PO DAILY 07/25/15 [History] Magnesium Oxide [Magnesium] 400 mg PO DAILY 07/30/16 [History] atorvaSTATin [Lipitor] 40 mg PO BEDTIME 07/30/16 [History] Acetaminophen [Tylenol] 650 mg PO Q4H PRN 09/13/19 [History] Warfarin Sodium 1.5 mg PO DAILY 09/13/19 [History] Montelukast [Singulair] 10 mg PO DAILY #30 tab 04/24/20 [Rx] Meclizine [Antivert] 12.5 mg PO TID #15 tab 05/31/20 [Rx] Past Medical History HEENT History: Reports: Allergic Rhinitis Other HEENT History: has "flipper" partial Cardiovascular History: Reports: Afib, Angina, Blood Clots/VTE/DVT, Pacemaker, Stents, Other (See Below) Other Cardiovascular History: Hx of bradycardia, cardiogenic shock, irregular heart beat, carotid bruit, cerebrovascular disease, mitral and tricuspid regurgitation, pericardial effusion,sick sinus syndrome, aortic valve sclerosis, angian, blood clot, STEMI, cardioverson Respiratory History: Reports: Bronchitis, Recurrent Other Respiratory History: Hx of choking, cough Gastrointestinal History: Reports: GERD, Hiatal Hernia, Other (See Below) Other Gastrointestinal History: Barretts esophagus, LUQ pain, dysphagia, diverticulosis, constipation Genitourinary History: Reports: Other (See Below) Other Genitourinary History: kidney disease BIOLOGY SPECIMEN TECHNICIAN History: Reports: Other BIOLOGY SPECIMEN TECHNICIAN History: hysterectomy Other Musculoskeletal History: L knee pain Neurological History: Reports: Other (See Below) Other Neuro History: lumbar stenosis with neurogenic claudication, dizziness, vertgo, lamiectomy discectomy Psychiatric History: Reports: None Endocrine/Metabolic History: Reports: None Hematologic History: Reports: None Immunologic History: Reports: None Oncologic (Cancer) History: Reports: None Dermatologic History: Reports: None - Infectious Disease History Infectious Disease History: Reports: None - Past Surgical History HEENT Surgical History: Reports: Cataract Surgery Cardiovascular Surgical History: Reports: Carotid Endarterectomy, Pacer Other Cardiovascular Surgeries/Procedures: afib corrected with cardioversion 8-9 years ago Respiratory Surgical History: Reports: None GI Surgical History: Reports: Appendectomy Female Surgical History: Reports: Hysterectomy Endocrine Surgical History: Reports: None Neurological Surgical History: Reports: Laminectomy Oncologic Surgical History: Reports: None Dermatological Surgical History: Reports: None Social & Family History - Tobacco Use Tobacco Use Status *Q: Never Tobacco User - Caffeine Use Caffeine Use: Reports: Coffee - Recreational Drug Use Recreational Drug Use: No - Living Situation & Occupation Living situation: Reports: Occupation: Retired ED ROS GENERAL - Review of Systems Review Of Systems: See Below Constitutional: Reports: Weakness. Denies: Fever, Chills HEENT: Reports: Vertigo. Denies: Vision Change Respiratory: Reports: No Symptoms. Denies: Shortness of Breath, Pleuritic Chest Pain, Cough Cardiovascular: Denies: Chest Pain, Dyspnea on Exertion, Syncope Endocrine: Reports: No Symptoms GI/Abdominal: Reports: No Symptoms : Reports: No Symptoms Musculoskeletal: Reports: No Symptoms Skin: Reports: No Symptoms Neurological: Reports: Dizziness, Difficulty Walking. Denies: Confusion, Headache, Change in Speech Psychiatric: Reports: No Symptoms Hematologic/Lymphatic: Reports: No Symptoms Immunologic: Reports: No Symptoms ED EXAM, NEURO - Physical Exam Exam: See Below Exam Limited By: No Limitations General Appearance: Alert, WD/WN, No Apparent Distress Eye Exam: Bilateral Eye: Normal Inspection, Other (no nystagmus) Head Exam: Atraumatic, Normocephalic Respiratory/Chest: No Respiratory Distress, Lungs Clear, Normal Breath Sounds, No Accessory Muscle Use, Chest Non-Tender Cardiovascular: Normal Peripheral Pulses, Regular Rate, Rhythm, No Edema, No Gallop, No JVD, No Murmur, No Rub GI/Abdominal: Normal Bowel Sounds, Soft, Non-Tender, No Organomegaly, No Distention, No Abnormal Bruit, No Mass Neurological: Alert, Normal Mood/Affect, Normal Dorsiflexion, CN II-XII Intact, Normal Plantar Flexion, Normal Gait, Normal Reflexes, No Motor/Sensory Deficits, Oriented x 3 Extremities: Normal Inspection, Normal Range of Motion, Non-Tender, No Pedal Edema, Normal Capillary Refill Psychiatric: Normal Affect, Normal Mood Skin Exam: Warm, Dry, Intact, Normal Color, No Rash #1 Interpretation EKG Date: 05/30/21 Time: 11:24 Rhythm: A-Fib Rate (Beats/Min): 60 Dorothy: Normal P-Wave: Absent QRS: Normal ST-T: Normal QT: Normal Course - Vital Signs Last Recorded V/S: Last Vital Signs Temp 97.0 F 05/30/21 14:22 Pulse 68 05/30/21 14:22 Resp 12 05/30/21 14:22 BP 161/69 H 05/30/21 14:22 Pulse Ox 100 05/30/21 14:22 Orthostatic Blood Pressure [ 118/63 Standing] Orthostatic Blood Pressure [ 177/65 Supine] - Orders/Labs/Meds Orders: Active Orders 24 hr Category Date Time Status CULTURE URINE [MREF] Stat Lab 05/30/21 13:32 Received Peripheral IV Insertion Adult [OM.PC] Stat Oth 05/30/21 11:15 Ordered Labs: Laboratory Tests 05/30/21 05/30/21 05/30/21 Range/Units 12:15 12:15 12:15 WBC 7.36 (3.98-10.04) K/mm3 RBC 4.56 (3.98-5.22) M/mm3 Hgb 13.8 (11.2-15.7) gm/dl Hct 41.6 (34.1-44.9) % MCV 91.2 (79.4-94.8) fl MCH 30.3 (25.6-32.2) pg MCHC 33.2 (32.2-35.5) g/dl RDW Std Deviation 44.7 (36.4-46.3) fL Plt Count 168 L (182-369) K/mm3 MPV 10.6 (9.4-12.3) fl Neut % (Auto) 78.8 H (34.0-71.1) % Lymph % (Auto) 12.4 L (19.3-51.7) % Calvert % (Auto) 7.5 (4.7-12.5) % Eos % (Auto) 0.8 (0.7-5.8) Baso % (Auto) 0.4 (0.1-1.2) % Neut # (Auto) 5.80 (1.56-6.13) K/mm3 Lymph # (Auto) 0.91 L (1.18-3.74) K/mm3 Calvert # (Auto) 0.55 H (0.24-0.36) K/mm3 Eos # (Auto) 0.06 (0.04-0.36) K/mm3 Baso # (Auto) 0.03 (0.01-0.08) K/mm3 Sodium 139 (136-145) mEq/L Potassium 4.7 (3.5-5.1) mEq/L Chloride 103 (98-107) mEq/L Carbon Dioxide 28 (21-32) mEq/L Anion Gap 12.7 (5-15) BUN 26 H (7-18) mg/dL Creatinine 1.4 H (0.55-1.02) mg/dL Est Cr Clr Drug Dosing 24.48 mL/min Estimated GFR (MDRD) 36 (>60) mL/min BUN/Creatinine Ratio 18.6 H (14-18) Glucose 83 (70-99) mg/dL Calcium 9.1 (8.5-10.1) mg/dL Magnesium 2.8 H (1.8-2.4) mg/dL Total Bilirubin 1.0 (0.2-1.0) mg/dL AST 27 (15-37) U/L ALT 33 (14-59) U/L Alkaline Phosphatase 84 (46-116) U/L Troponin I < 0.017 (0.00-0.056) ng/mL NT-Pro-B Natriuret Pep 299 (0-450) pg/mL Total Protein 7.4 (6.4-8.2) g/dl Albumin 4.0 (3.4-5.0) g/dl Globulin 3.4 gm/dL Albumin/Globulin Ratio 1.2 (1-2) Urine Color (Yellow) Urine Appearance (Clear) Urine pH (5.0-8.0) Ur Specific [place] (1.005-1.030) Urine Protein (Negative) Urine Glucose (UA) (Negative) Urine Ketones (Negative) Urine Occult Blood (Negative) Urine Nitrite (Negative) Urine Bilirubin (Negative) Urine Urobilinogen (0.2-1.0) Ur Leukocyte Esterase (Negative) Urine RBC (0-5) /hpf Urine WBC (0-5) /hpf Ur Epithelial Cells (0-5) /hpf Urine Bacteria (FEW) /hpf Urine Mucus (FEW) /hpf 05/30/ Range/Units 13:32 WBC (3.98-10.04) K/mm3 RBC (3.98-5.22) M/mm3 Hgb (11.2-15.7) gm/dl Hct (34.1-44.9) % MCV (79.4-94.8) fl MCH (25.6-32.2) pg MCHC (32.2-35.5) g/dl RDW Std Deviation (36.4-46.3) fL Plt Count (182-369) K/mm3 MPV (9.4-12.3) fl Neut % (Auto) (34.0-71.1) % Lymph % (Auto) (19.3-51.7) % Calvert % (Auto) (4.7-12.5) % Eos % (Auto) (0.7-5.8) Baso % (Auto) (0.1-1.2) % Neut # (Auto) (1.56-6.13) K/mm3 Lymph # (Auto) (1.18-3.74) K/mm3 Calvert # (Auto) (0.24-0.36) K/mm3 Eos # (Auto) (0.04-0.36) K/mm3 Baso # (Auto) (0.01-0.08) K/mm3 Sodium (136-145) mEq/L Potassium (3.5-5.1) mEq/L Chloride (98-107) mEq/L Carbon Dioxide (21-32) mEq/L Anion Gap (5-15) BUN (7-18) mg/dL Creatinine (0.55-1.02) mg/dL Est Cr Clr Drug Dosing mL/min Estimated GFR (MDRD) (>60) mL/min BUN/Creatinine Ratio (14-18) Glucose (70-99) mg/dL Calcium (8.5-10.1) mg/dL Magnesium (1.8-2.4) mg/dL Total Bilirubin (0.2-1.0) mg/dL AST (15-37) U/L ALT (14-59) U/L Alkaline Phosphatase (46-116) U/L Troponin I (0.00-0.056) ng/mL NT-Pro-B Natriuret Pep (0-450) pg/mL Total Protein (6.4-8.2) g/dl Albumin (3.4-5.0) g/dl Globulin gm/dL Albumin/Globulin Ratio (1-2) Urine Color Light yellow (Yellow) Urine Appearance Clear (Clear) Urine pH 7.0 (5.0-8.0) Ur Specific [place] 1.020 (1.005-1.030) Urine Protein Negative (Negative) Urine Glucose (UA) Negative (Negative) Urine Ketones Negative (Negative) Urine Occult Blood Trace-lysed H (Negative) Urine Nitrite Negative (Negative) Urine Bilirubin Negative (Negative) Urine Urobilinogen 0.2 (0.2-1.0) Ur Leukocyte Esterase Trace H (Negative) Urine RBC 0-5 (0-5) /hpf Urine WBC 0-5 (0-5) /hpf Ur Epithelial Cells 0-5 (0-5) /hpf Urine Bacteria Few (FEW) /hpf Urine Mucus Few (FEW) /hpf Meds: Medications Discontinued Medications Generic Name Dose Route Start Last Admin Trade Name Blanquita PRN Reason Stop Dose Admin Sodium Chloride 1,000 mls @ 999 mls/hr 05/30/21 11:17 05/30/21 11:52 Normal Saline IV 05/30/21 12:17 150 mls/hr NOW STA Administration Sodium Chloride 10 ml 05/30/21 11:17 05/30/21 11:53 Sodium Chloride 0.9% 10 Ml Syringe FLUSH 10 ml ASDIRECTED PRN Administration Keep Vein Open - Re-Assessments/Exams Free Text/Narrative Re-Assessment/Exam: Patient is an 85-year-old female presenting to the emergency department with complaints of intermittent episodes of dizziness and weakness, which she states are significantly worse in the morning. Exam is overall unremarkable. Review of patient's history, she has been seen here for similar complaints in the past. Diagnosed with benign paroxysmal vertigo and presented meclizine. She states she does have meclizine at home, however she has not been using it. I have ordered blood work, urinalysis, EKG, chest x-ray, head CT. I will give her a 500 mill bolus of normal saline followed by infusion at 150 mill per hour. 05/30/21 13:27 Hematology is grossly unremarkable. BUN and creatinine are minimally elevated, however patient has a history of chronic kidney disease and this is within her normal range. Troponin is negative. Patient is not anemic. EKG shows an atrial paced rhythm at 60. Chest x-ray and head CT both show no acute abnormalities. Patient was found to be orthostatic with her blood pressure dropping from 177/65 lying to 118/63 standing, however she did not experience dizziness with this. She is providing us with a urine sample now. Departure - Departure Time of Disposition: 14:12 Disposition: Home, Self-Care 01 Condition: Good Clinical Impression: Generalized weakness, Dizziness - Discharge Information *PRESCRIPTION DRUG MONITORING PROGRAM REVIEWED*: No Instructions: Dizziness, [id number], Weakness Referrals: Henri Prieto MD [Primary Care Provider] - Forms: ED Department Discharge Additional Instructions: You were seen in the emergency department today for episodes of dizziness as well as weakness at home. Work-up included blood work, urinalysis, EKG of your heart, chest x-ray, and a CT scan of your head. Results of your work-up were found to be normal. You did receive IV fluids while in the emergency department. Since he reports that your symptoms are worse in the morning, I would recommend taking a meclizine with your morning medications each day. This will help treat vertigo symptoms which I feel is likely what you are experiencing. Keep your appointment with Dr. Prieto as scheduled next week. Make position changes slowly. Return to ER for any new or worsening symptoms. Sepsis Event Note (ED) - Evaluation Sepsis Screening Result: No Definite Risk - Focused Exam Vital Signs: Vital Signs Temp Pulse Resp BP Pulse Ox 05/30/21 14:22 97.0 F 68 12 161/69 H 100 05/30/21 11:00 98.4 F 75 20 161/61 H 99 - My Orders Last 24 Hours: My Active Orders 05/30/21 11:15 Peripheral IV Insertion Adult [OM.PC] Stat 05/30/21 13:32 CULTURE URINE [MREF] Stat - Assessment/Plan Last 24 Hours: My Active Orders 05/30/21 11:15 Peripheral IV Insertion Adult [OM.PC] Stat 05/30/21 13:32 CULTURE URINE [MREF] Stat
[2021-05-30 14:27] VITALS: BP 161/69; PULSE 68
== END 2021-05-30 14:30 | disposition home or self-care (01) ==
LOC: JD.ED 10:38
DX: R42 Dizziness and giddiness (principal); R53.1 Weakness; I48.91 Unspecified atrial fibrillation; I25.2 Old myocardial infarction; K21.9 Gastro-esophageal reflux disease without esophagitis; Z88.1 Allergy status to other antibiotic agents; Z79.82 Long term (current) use of aspirin; Z79.01 Long term (current) use of anticoagulants; Z79.899 Other long term (current) drug therapy
CPT/HCPCS: 36415; 70450; 71046; 80053; 81001; 83735; 83880; 84484; 85025; 87086; 93005; 99285; J7030; 93010; 99284

== ENCOUNTER 2022-05-07 11:21 | Emergency (ER) | payer MEDICARE, OTHER ==
[2022-05-07 11:40] VITALS: BP 125/74; PULSE 85
[2022-05-07] MEDS ORDERED: Sodium Chloride 0.9% 10 ML Syringe FLUSH PRN (13:29)
[2022-05-07] MEDS ORDERED: Sodium Chloride 0.9% 1,000 ML IV SCH (13:30)
== END 2022-05-07 17:23 | disposition home or self-care (01) ==
LOC: JD.ED 11:21
DX: I95.89 Other hypotension (principal); I48.91 Unspecified atrial fibrillation; K21.9 Gastro-esophageal reflux disease without esophagitis; I25.2 Old myocardial infarction; Z88.8 Allergy status to other drugs, medicaments and biological substances; Z95.0 Presence of cardiac pacemaker; Z79.899 Other long term (current) drug therapy; Z20.822 Contact with and (suspected) exposure to COVID-19
CPT/HCPCS: 36415; 70450; 80053; 81001; 83735; 84443; 84484; 85025; 85610; 93005; 96360; 99285; J3490; J7030; U0002; 93010; 99284

== ENCOUNTER 2022-05-26 12:23 | Emergency (ER) | payer MEDICARE, OTHER ==
[2022-05-26] MEDS ORDERED: Sodium Chloride 0.9% 10 ML Syringe FLUSH PRN (13:52)
[2022-05-26 15:11] LABS: CORONAVIRUS COVID-19 NAA NEGATIVE (NEGATIVE)
[2022-05-26 18:01] VITALS: BP 180/79; PULSE 62
== END 2022-05-26 17:45 | disposition home or self-care (01) ==
LOC: JD.ED 12:23
DX: R53.1 Weakness (principal); K21.9 Gastro-esophageal reflux disease without esophagitis; Z88.8 Allergy status to other drugs, medicaments and biological substances; Z79.899 Other long term (current) drug therapy; Z79.82 Long term (current) use of aspirin; Z79.01 Long term (current) use of anticoagulants; Z90.49 Acquired absence of other specified parts of digestive tract; Z90.710 Acquired absence of both cervix and uterus; Z20.822 Contact with and (suspected) exposure to COVID-19
CPT/HCPCS: 0240U; 36415; 51701; 70450; 71045; 80053; 81001; 83735; 83880; 84484; 85007; 85027; 93005; 99285; J3490; 93010; 99284

== ENCOUNTER 2023-04-15 12:07 | Emergency (ER) | payer MEDICARE, OTHER ==
[2023-04-15 12:33] VITALS: PULSE 70
[2023-04-15] MEDS ORDERED: Sodium Chloride 0.9% 10 ML Syringe FLUSH PRN (12:39)
[2023-04-15 12:56] LABS: HEMATOCRIT 43.9 % (34.1-44.9); HEMOGLOBIN 14.4 gm/dl (11.2-15.7); MEAN CORPUSCULAR HEMOGLOBIN 29.7 pg (25.6-32.2); MEAN CORPUSCULAR HGB CONC 32.8 g/dl (32.2-35.5); MEAN CORPUSCULAR VOLUME 90.5 fl (79.4-94.8); MEAN PLATELET VOLUME 10.5 fl (9.4-12.3); PLATELET COUNT,PLT 176 K/mm3 (182-369); RED BLOOD CELL COUNT 4.85 M/mm3 (3.98-5.22); WHITE BLOOD CELL COUNT,WBC 8.23 K/mm3 (3.98-10.04)
[2023-04-15 13:13] LABS: INR 3.06; PROTHROMBIN TIME 30.1 SECONDS (9.7-12.0)
[2023-04-15 13:28] LABS: A/G RATIO 1.2 (1-2); ALANINE AMINOTRANSFERASE,ALT 23 U/L (14-59); ALBUMIN 3.8 g/dl (3.4-5.0); ALKALINE PHOSPHATASE 72 U/L (46-116); ANION GAP 12.6 (5-15); ASPARTATE AMNIOTRANSFERASE,AST 25 U/L (15-37); BILIRUBIN TOTAL 1.4 mg/dL (0.2-1.0); BLOOD UREA NITROGEN,BUN 23 mg/dL (7-18); BUN/CREATININE RATIO 25.6 (14-18); C-REACTIVE PROTEIN <0.2 mg/dL (<1.0); CALCIUM 9.4 mg/dL (8.5-10.1); CARBON DIOXIDE,CO2 28 mEq/L (21-32); CHLORIDE,CL 104 mEq/L (98-107); CREATININE 0.9 mg/dL (0.55-1.02); EST CRCL DRUG DOSING (CG) 35.58 mL/min; ESTIMATED GFR 61 mL/min (>60); GLUCOSE RANDOM 88 mg/dL (70-99); LIPASE 264 U/L (73-393); POTASSIUM,K 4.6 mEq/L (3.5-5.1); SODIUM,NA 140 mEq/L (136-145); TROPONIN I HIGH SENSITIVITY 6 pg/mL (<=51)
[2023-04-15] MEDS ORDERED: Iopamidol 612 MG/ML 30 ML SDV IVPUSH ONE ×2 (14:09→14:10)
[2023-04-15 14:16] LABS: BAND PERCENT MAN 0 % (0-10); BASOPHILS PERCENT MAN 1 (0.1-1.2); EOSINOPHILS PERCENT MAN 2 % (0.7-5.8); LYMPHOCYTES % ATYPICAL MANUAL 0 %; LYMPHOCYTES PERCENT MAN 21 % (20-40); MONOCYTES PERCENT MAN 5 % (2-10)
[2023-04-15 14:19] LABS: APPEARANCE,URINE CLEAR (Clear); BILIRUBIN,URINE NEGATIVE (Negative); COLOR,URINE YELLOW (Yellow); GLUCOSE,URINE NEGATIVE (Negative); KETONES,URINE NEGATIVE (Negative); LEUKOCYTE ESTERASE,URINE NEGATIVE (Negative); NITRITE,URINE NEGATIVE (Negative); OCCULT BLOOD,URINE 2+ (Negative); PH,URINE 6.5 (5.0-8.0); PROTEIN,URINE NEGATIVE (Negative); UROBILINOGEN,URINE 0.2 (0.2-1.0)
[2023-04-15 14:19] LABS: ACANTHOCYTES 1+ SLIGHT; ANISOCYTOSIS 1+ SLIGHT; OVALOCYTES 1+ SLIGHT; PLATELET COUNT ESTIMATE ADEQUATE
[2023-04-15 14:33] LABS: BACTERIA,URINE FEW /hpf (FEW); EPITHELIAL CELLS,URINE 0-5 /hpf (0-5); MUCUS,URINE NOT SEEN /hpf (FEW); WBC,URINE 0-5 /hpf (0-5)
[2023-04-15 14:55] LABS: LACTIC ACID 0.8 mmol/L (0.4-2.0)
[2023-04-15 18:14] VITALS: BP 166/100
== END 2023-04-15 16:40 | disposition home or self-care (01) ==
LOC: JD.ED 12:07
DX: R53.1 Weakness (principal); I48.91 Unspecified atrial fibrillation; K21.9 Gastro-esophageal reflux disease without esophagitis; Z79.899 Other long term (current) drug therapy; Z88.1 Allergy status to other antibiotic agents
CPT/HCPCS: 36415; 70450; 71045; 74177; 80053; 81001; 83605; 83690; 84484; 85007; 85027; 85610; 86140; 87040; 99285; Q9967; 93010; 99284